=== PATIENT | female | born 1945 | race Caucasian/White ===

== ENCOUNTER 2016-10-05 23:27 | Inpatient (IN) | payer MEDICARE, OTHER ==
[~2016-10-05] VITALS: Ht 153.7 cm; Wt 78.5 kg
[~2016-10-05 23:27] MED LIST: ASPI-1035 PO; DIGO125T82 PO; DILT180C69 PO; ELIQUIS PO; FISH1CAP PO; FURO40TA5 PO; GABA-531 PO; LEVEMIR SQ; LEVO25TA54 PO; LOSA100T14 PO; METO200T34 PO; MULT-1116 PO; PROT40 PO
[2016-10-05] MEDS ORDERED: ASPIRIN 81MG TABLET PO STA (23:44)
[2016-10-06 00:05] LABS: BASOPHILS % 1.2 % (0.0-2.0); EOSINOPHILS % 2.2 % (0.0-5.0); HEMATOCRIT. 37.2 % (36.0-48.0); HEMOGLOBIN. 11.9 g/dL (12.0-16.0); LYMPHOCYTES % 24.6 % (20.0-50.0); MEAN CORPUSCULAR HEMOGLOBIN 27.2 pg (28.0-32.0); MEAN CORPUSCULAR VOLUME 84.7 fL (81.0-99.0); MEAN PLATELET VOLUME 10.6 fl (7.4-10.4); MONOCYTES % 8.3 % (2.0-8.0); NEUTROPHILS % 63.7 % (40.0-76.0); PLATELET 301 x1000/uL (130-400); RED BLOOD CELL COUNT 4.39 mill/uL (4.2-5.4); RED CELL DISTRIBUTION WIDTH 18.2 % (11.6-14.6)
[2016-10-06 00:15] LABS: PARTIAL THROMBOPLASTIN TIME 22.4 sec (24.0-34.0); PROTHROMBIN TIME 10.3 sec
[2016-10-06 00:22] LABS: CARBON DIOXIDE 26 mEq/L (21-32); CHLORIDE 106 mEq/L (98-107); TROPONIN I 0.02 ng/mL (0.00-0.04)
[2016-10-06 02:50] VITALS: BP 130/74
[2016-10-06 04:00] VITALS: BP 98/55
[2016-10-06] MEDS ORDERED: LEVVL SQ (04:09)
[2016-10-06] MEDS ORDERED: APIX5TAB PO (04:09)
[2016-10-06] MEDS ORDERED: INSU100C3 SQ (04:13)
[2016-10-06] MEDS ORDERED: ACETAMINOPHEN 325MG TABLET PO PRN (05:00)
[2016-10-06] MEDS ORDERED: DEXTROSE 50% WATER 50ML SYRINGE IV PRN (05:00)
[2016-10-06] MEDS: LEVOTHYROXINE SODIUM 25MCG TABLET PO SCH (06:30)
[2016-10-06] MEDS: BLOOD SUGAR DIAGNOSTIC STRIP TEST SCH ×4 (06:30→20:23)
[2016-10-06] MEDS: INSULIN LISPRO 100 UNITS/ML SUBCUT SCH ×4 (06:39→21:15)
[2016-10-06 08:00] VITALS: BP 98/59
[2016-10-06 08:22] LABS: TROPONIN I 0.12 ng/mL (0.00-0.04)
[2016-10-06 08:37] LABS: BASOPHILS % 0.8 % (0.0-2.0); EOSINOPHILS % 2.5 % (0.0-5.0); HEMATOCRIT. 36.3 % (36.0-48.0); HEMOGLOBIN. 11.6 g/dL (12.0-16.0); LYMPHOCYTES % 33.4 % (20.0-50.0); MEAN CORPUSCULAR HEMOGLOBIN 26.9 pg (28.0-32.0); MEAN CORPUSCULAR VOLUME 84.7 fL (81.0-99.0); MEAN PLATELET VOLUME 10.9 fl (7.4-10.4); MONOCYTES % 9.4 % (2.0-8.0); NEUTROPHILS % 53.9 % (40.0-76.0); PLATELET 287 x1000/uL (130-400); RED BLOOD CELL COUNT 4.29 mill/uL (4.2-5.4)
[2016-10-06] MEDS ORDERED: ENOXAPARIN 40MG/0.4ML SYR SUBCUT SCH (09:00)
[2016-10-06] MEDS: DILTIAZEM HCL 180MG CAPSULE CD 24HR PO SCH (09:00)
[2016-10-06] MEDS: FUROSEMIDE 40MG TABLET PO SCH ×2 (09:00→17:32)
[2016-10-06] MEDS: LOSARTAN POTASSIUM 100 MG TABLET PO SCH (09:00)
[2016-10-06] MEDS: METOPROLOL TARTRATE 100MG TABLET PO SCH ×2 (09:00→20:23)
[2016-10-06] MEDS: ASPIRIN 81MG EC TABLET PO SCH (09:10)
[2016-10-06] MEDS: PANTOPRAZOLE 40MG DR TABLET PO SCH (09:10)
[2016-10-06] MEDS: GABAPENTIN 300MG CAPSULE PO SCH ×2 (09:10→17:32)
[2016-10-06] MEDS: FISH OIL/OMEGA-3 FATTY ACIDS 1000MG CAPSULE PO SCH (09:10)
[2016-10-06] MEDS: MULTIVITAMINS,THER W-MINERALS TABLET PO SCH (09:10)
[2016-10-06] MEDS: APIXABAN 5 MG TABLET PO SCH ×2 (09:10→17:32)
[2016-10-06] MEDS: INSULIN DETEMIR UD 100 UNITS/ML SYR SUBCUT SCH ×2 (09:14→21:16)
[2016-10-06 12:00] VITALS: BP 113/67
[2016-10-06 16:00] VITALS: BP 142/98
[2016-10-06 18:36] LABS: BG BASE EXCESS -0.3 mmol/L (-2.0-2.0); BG CARBOXYHEMOGLOBIN 0.8 % (0.5-1.5); BG DEOXYHEMOGLOBIN 7.9 % (0.0-5.0); BG FRACTION INSPIRED OXYGEN 21; BG HCO3 ACT 25.8 mmol/L (22.0-26.0); BG METHEMOGLOBIN 0.3 % (0.0-1.5); BG PCO2 48.2 mmHg (35.0-45.0); BG PH 7.346 (7.350-7.450); BG PO2 68.6 mmHg (75.0-100.0); BG SAMPLE SITE LEFT RADIAL; BG TOTAL HEMOGLOBIN 12.5 g/dL (12.0-18.0); BG VENT MODE ROOM AIR
[2016-10-06] MEDS ORDERED: IPRATROPIUM BROMIDE (0.02%) 0.5MG/2.5ML NEB HHN PRN (19:00)
[2016-10-06] MEDS ORDERED: IPRATROPIUM/ALBUTEROL 0.5-3(2.5)MG/3ML NEB HHN PRN (19:45)
[2016-10-06 20:00] VITALS: BP 137/73
[2016-10-07] VITALS (9 sets, daily range): BP systolic 101–139; BP diastolic 53–104
[2016-10-07] MEDS: HYDROMORPHONE HCL/PF 2MG/ML CPJ IV PRN ×3 (00:43→12:41)
[2016-10-07] MEDS ORDERED: HYDROCODONE/ACETAMINOPHEN 5/325MG TABLET PO PRN (06:00)
[2016-10-07] MEDS: BLOOD SUGAR DIAGNOSTIC STRIP TEST SCH ×4 (06:19→21:00)
[2016-10-07] MEDS: LEVOTHYROXINE SODIUM 25MCG TABLET PO SCH (06:19)
[2016-10-07] MEDS: INSULIN LISPRO 100 UNITS/ML SUBCUT SCH ×4 (06:25→21:38)
[2016-10-07] MEDS: MULTIVITAMINS,THER W-MINERALS TABLET PO SCH (08:40)
[2016-10-07] MEDS: FISH OIL/OMEGA-3 FATTY ACIDS 1000MG CAPSULE PO SCH (08:41)
[2016-10-07] MEDS: DILTIAZEM HCL 180MG CAPSULE CD 24HR PO SCH (08:41)
[2016-10-07] MEDS: LOSARTAN POTASSIUM 100 MG TABLET PO SCH (08:41)
[2016-10-07] MEDS: APIXABAN 5 MG TABLET PO SCH (08:41)
[2016-10-07] MEDS: ASPIRIN 81MG EC TABLET PO SCH (08:42)
[2016-10-07] MEDS: METOPROLOL TARTRATE 100MG TABLET PO SCH ×2 (08:42→21:36)
[2016-10-07] MEDS: FUROSEMIDE 40MG TABLET PO SCH ×2 (08:42→17:38)
[2016-10-07] MEDS: GABAPENTIN 300MG CAPSULE PO SCH ×2 (08:42→17:38)
[2016-10-07] MEDS: PANTOPRAZOLE 40MG DR TABLET PO SCH (08:46)
[2016-10-07] MEDS: INSULIN DETEMIR UD 100 UNITS/ML SYR SUBCUT SCH ×2 (10:46→21:39)
[2016-10-07] MEDS: NITROGLYCERIN 0.4MG TABLET SL SL PRN ×2 (11:45→12:00)
[2016-10-07] MEDS: CLOPIDOGREL 75MG TABLET PO SCH (12:40)
[2016-10-07] MEDS ORDERED: ACETAMINOPHEN WITH CODEINE 300/30MG TABLET PO PRN (13:15)
[2016-10-07] MEDS: NITROGLYCERIN 2% 30 GM OINT. TOP SCH ×2 (15:06→21:39)
[2016-10-07] MEDS ORDERED: ENOXAPARIN 60MG/0.6ML SYR SUBCUT SCH (21:00)
[2016-10-08] VITALS (12 sets, daily range): BP systolic 100–131; BP diastolic 43–86
[2016-10-08] MEDS: LEVOTHYROXINE SODIUM 25MCG TABLET PO SCH (06:23)
[2016-10-08] MEDS: NITROGLYCERIN 2% 30 GM OINT. TOP SCH ×3 (06:23→21:14)
[2016-10-08] MEDS: BLOOD SUGAR DIAGNOSTIC STRIP TEST SCH ×4 (06:50→21:08)
[2016-10-08 07:17] LABS: BASOPHILS % 0.5 % (0.0-2.0); HEMATOCRIT. 39.9 % (36.0-48.0); HEMOGLOBIN. 12.6 g/dL (12.0-16.0); MEAN CORPUSCULAR HEMOGLOBIN 27.1 pg (28.0-32.0); MEAN CORPUSCULAR VOLUME 85.5 fL (81.0-99.0); MEAN PLATELET VOLUME 10.7 fl (7.4-10.4); MONOCYTES % 10.9 % (2.0-8.0); NEUTROPHILS % 62.6 % (40.0-76.0); PLATELET 321 x1000/uL (130-400); RED BLOOD CELL COUNT 4.67 mill/uL (4.2-5.4); RED CELL DISTRIBUTION WIDTH 17.9 % (11.6-14.6)
[2016-10-08] MEDS: INSULIN LISPRO 100 UNITS/ML SUBCUT SCH ×4 (07:20→20:34)
[2016-10-08 07:30] LABS: T4 FREE 1.13 ng/dL (0.76-1.46)
[2016-10-08 08:04] LABS: TROPONIN I 4.4 ng/mL (0.00-0.04)
[2016-10-08] MEDS: GABAPENTIN 300MG CAPSULE PO SCH ×2 (08:06→17:12)
[2016-10-08] MEDS: FISH OIL/OMEGA-3 FATTY ACIDS 1000MG CAPSULE PO SCH (08:06)
[2016-10-08] MEDS: LOSARTAN POTASSIUM 100 MG TABLET PO SCH (08:06)
[2016-10-08] MEDS: NITROGLYCERIN 0.4MG TABLET SL SL PRN ×2 (08:06→23:05)
[2016-10-08] MEDS: METOPROLOL TARTRATE 100MG TABLET PO SCH ×2 (08:06→20:34)
[2016-10-08] MEDS: ASPIRIN 81MG EC TABLET PO SCH (08:07)
[2016-10-08] MEDS: DILTIAZEM HCL 180MG CAPSULE CD 24HR PO SCH (08:07)
[2016-10-08] MEDS: FUROSEMIDE 40MG TABLET PO SCH (08:07)
[2016-10-08] MEDS: CLOPIDOGREL 75MG TABLET PO SCH (08:07)
[2016-10-08] MEDS: FAMOTIDINE 20MG TABLET PO SCH (08:07)
[2016-10-08] MEDS: MULTIVITAMINS,THER W-MINERALS TABLET PO SCH (08:08)
[2016-10-08] MEDS: DIGOXIN 125MCG TABLET PO SCH (08:08)
[2016-10-08] MEDS: INSULIN DETEMIR UD 100 UNITS/ML SYR SUBCUT SCH ×2 (11:13→21:15)
[2016-10-09] VITALS (12 sets, daily range): BP systolic 100–154; BP diastolic 52–88
[2016-10-09] MEDS: SODIUM CHLORIDE 0.9% 1,000 ML IV SCH ×2 (01:10→21:14)
[2016-10-09 05:35] LABS: BASOPHILS % 0.8 % (0.0-2.0); EOSINOPHILS % 2.9 % (0.0-5.0); HEMATOCRIT. 33.6 % (36.0-48.0); HEMOGLOBIN. 10.7 g/dL (12.0-16.0); LYMPHOCYTES % 31.2 % (20.0-50.0); MEAN CORPUSCULAR HEMOGLOBIN 26.9 pg (28.0-32.0); MEAN CORPUSCULAR VOLUME 84.2 fL (81.0-99.0); MEAN PLATELET VOLUME 10.6 fl (7.4-10.4); MONOCYTES % 9.5 % (2.0-8.0); NEUTROPHILS % 55.6 % (40.0-76.0); PLATELET 278 x1000/uL (130-400); RED BLOOD CELL COUNT 3.99 mill/uL (4.2-5.4); RED CELL DISTRIBUTION WIDTH 17.7 % (11.6-14.6)
[2016-10-09] MEDS: NITROGLYCERIN 2% 30 GM OINT. TOP SCH ×4 (06:47→23:28)
[2016-10-09] MEDS: LEVOTHYROXINE SODIUM 25MCG TABLET PO SCH (06:47)
[2016-10-09] MEDS: BLOOD SUGAR DIAGNOSTIC STRIP TEST SCH ×4 (06:47→21:14)
[2016-10-09] MEDS: INSULIN LISPRO 100 UNITS/ML SUBCUT SCH ×4 (07:20→21:16)
[2016-10-09] MEDS: DILTIAZEM HCL 180MG CAPSULE CD 24HR PO SCH ×2 (09:00→10:35)
[2016-10-09] MEDS: LOSARTAN POTASSIUM 100 MG TABLET PO SCH ×2 (09:00→10:34)
[2016-10-09] MEDS: METOPROLOL TARTRATE 100MG TABLET PO SCH ×2 (09:00→21:14)
[2016-10-09] MEDS: FAMOTIDINE 20MG TABLET PO SCH ×2 (09:00→10:34)
[2016-10-09] MEDS: GABAPENTIN 300MG CAPSULE PO SCH ×2 (09:00→17:35)
[2016-10-09] MEDS: MULTIVITAMINS,THER W-MINERALS TABLET PO SCH ×2 (09:00→10:35)
[2016-10-09] MEDS: FISH OIL/OMEGA-3 FATTY ACIDS 1000MG CAPSULE PO SCH ×2 (09:00→10:35)
[2016-10-09] MEDS: ASPIRIN 81MG EC TABLET PO SCH ×2 (09:00→10:37)
[2016-10-09] MEDS: CLOPIDOGREL 75MG TABLET PO SCH (10:36)
[2016-10-09] MEDS: NITROGLYCERIN 0.4MG TABLET SL SL PRN ×4 (10:43→22:15)
[2016-10-09] MEDS: MORPHINE SULFATE 2 MG/ML CPJ (NOT FOR IM USE) IV PRN ×3 (10:53→19:05)
[2016-10-09] MEDS: INSULIN DETEMIR UD 100 UNITS/ML SYR SUBCUT SCH ×2 (11:14→21:28)
[2016-10-09 12:27] LABS: CREATINE KINASE MB FRACTION 3.3 ng/mL (0.5-3.6)
[2016-10-09 13:02] LABS: TROPONIN I 1.7 ng/mL (0.00-0.04)
[2016-10-09 16:06] LABS: CREATINE KINASE MB FRACTION 3.1 ng/mL (0.5-3.6)
[2016-10-09 16:24] LABS: TROPONIN I 1.2 ng/mL (0.00-0.04)
[2016-10-09] MEDS ORDERED: NITROGLYCERIN 2% 30 GM OINT. TOP SCH (18:00)
[2016-10-10] VITALS (20 sets, daily range): BP systolic 113–159; BP diastolic 45–105
[2016-10-10] MEDS ORDERED: DEXT 5%/0.45% NACL 1,000 ML IV ONE
[2016-10-10 00:01] LABS: CREATINE KINASE MB FRACTION 2.3 ng/mL (0.5-3.6)
[2016-10-10] MEDS: HYDROMORPHONE HCL/PF 2MG/ML CPJ IV PRN (00:09)
[2016-10-10] MEDS: DEXT 5%/0.45% NACL 1000ML 1,000 ML IV SCH ×3 (00:32→17:35)
[2016-10-10 00:56] LABS: TROPONIN I 0.91 ng/mL (0.00-0.04)
[2016-10-10] MEDS: NITROGLYCERIN 2% 30 GM OINT. TOP SCH ×5 (06:00→23:56)
[2016-10-10 06:14] LABS: BASOPHILS % 0.7 % (0.0-2.0); EOSINOPHILS % 1.9 % (0.0-5.0); HEMATOCRIT. 33.8 % (36.0-48.0); HEMOGLOBIN. 10.7 g/dL (12.0-16.0); LYMPHOCYTES % 22.6 % (20.0-50.0); MEAN PLATELET VOLUME 10.8 fl (7.4-10.4); NEUTROPHILS % 66.8 % (40.0-76.0); PLATELET 274 x1000/uL (130-400); RED BLOOD CELL COUNT 3.98 mill/uL (4.2-5.4); RED CELL DISTRIBUTION WIDTH 17.7 % (11.6-14.6)
[2016-10-10] MEDS: LEVOTHYROXINE SODIUM 25MCG TABLET PO SCH (06:33)
[2016-10-10] MEDS: BLOOD SUGAR DIAGNOSTIC STRIP TEST SCH ×4 (06:33→21:20)
[2016-10-10] MEDS: INSULIN LISPRO 100 UNITS/ML SUBCUT SCH ×4 (07:20→21:13)
[2016-10-10 08:00] LABS: TROPONIN I 1.2 ng/mL (0.00-0.04)
[2016-10-10] MEDS ORDERED: MIDAZOLAM HCL 2 MG/2 ML VIAL ONE ×3 (08:26→09:45)
[2016-10-10] MEDS ORDERED: FENTANYL CITRATE/PF 50MCG/ML 2ML VIAL ONE ×2 (08:27→09:46)
[2016-10-10] MEDS ORDERED: LIDOCAINE HCL 1% 20ML VIAL (Pyxis) INJ ONE ×2 (08:27→09:02)
[2016-10-10] MEDS ORDERED: IOHEXOL-300 100 ML BOTTLE ONE (08:27)
[2016-10-10] MEDS ORDERED: DIPHENHYDRAMINE 50MG/ML VIAL ONE (08:32)
[2016-10-10] MEDS ORDERED: HYDROCORTISONE SOD SUCCINATE 250 MG/2 ML VIAL ONE (08:32)
[2016-10-10] MEDS ORDERED: FAMOTIDINE 20MG/2ML VIAL IV ONE (08:33)
[2016-10-10] MEDS: ASPIRIN 81MG EC TABLET PO SCH (09:00)
[2016-10-10] MEDS: CLOPIDOGREL 75MG TABLET PO SCH (09:00)
[2016-10-10] MEDS: FISH OIL/OMEGA-3 FATTY ACIDS 1000MG CAPSULE PO SCH (09:00)
[2016-10-10] MEDS: MULTIVITAMINS,THER W-MINERALS TABLET PO SCH (09:00)
[2016-10-10] MEDS ORDERED: IOVERSOL 240MG/ML 100ML BOTTLE IV ONE (09:14)
[2016-10-10] MEDS ORDERED: IODIXANOL 320MG/ML 100 ML BOTTLE IV ONE (09:33)
[2016-10-10] MEDS ORDERED: ATROPINE SULFATE 0.1MG/ML 10ML DISP.SYRIN ONE (09:40)
[2016-10-10] MEDS: INSULIN DETEMIR UD 100 UNITS/ML SYR SUBCUT SCH ×2 (10:00→21:19)
[2016-10-10] MEDS ORDERED: CLOPIDOGREL 75MG TABLET ONE (10:06)
[2016-10-10] MEDS ORDERED: ASPIRIN 325MG TABLET ONE (10:06)
[2016-10-10] MEDS ORDERED: ATROPINE SULFATE 1MG/10ML SYR IV PRN (10:30)
[2016-10-10] MEDS: POTASSIUM CHLORIDE 20MEQ TABLET SR PO SCH ×2 (10:30→13:35)
[2016-10-10] MEDS ORDERED: FUROSEMIDE 40MG/4ML VIAL ONE (10:45)
[2016-10-10] MEDS: DILTIAZEM HCL 180MG CAPSULE CD 24HR PO SCH (13:35)
[2016-10-10] MEDS: FAMOTIDINE 20MG TABLET PO SCH (13:35)
[2016-10-10] MEDS: GABAPENTIN 300MG CAPSULE PO SCH ×2 (13:36→17:34)
[2016-10-10] MEDS: LOSARTAN POTASSIUM 100 MG TABLET PO SCH (13:36)
[2016-10-10] MEDS: DIGOXIN 125MCG TABLET PO SCH (13:36)
[2016-10-10] MEDS ORDERED: HEPARIN SODIUM 1,000 UNIT/1ML VIAL IV ONE (15:26)
[2016-10-10] MEDS: CARVEDILOL 12.5MG TABLET PO SCH (21:20)
[2016-10-11] VITALS (12 sets, daily range): BP systolic 83–145; BP diastolic 49–71
[2016-10-11] MEDS: NITROGLYCERIN 2% 30 GM OINT. TOP SCH ×3 (05:18→17:05)
[2016-10-11] MEDS: BLOOD SUGAR DIAGNOSTIC STRIP TEST SCH ×3 (05:19→17:05)
[2016-10-11] MEDS: LEVOTHYROXINE SODIUM 25MCG TABLET PO SCH (05:27)
[2016-10-11 06:54] LABS: BASOPHILS % 0.5 % (0.0-2.0); EOSINOPHILS % 1.1 % (0.0-5.0); HEMATOCRIT. 32.6 % (36.0-48.0); HEMOGLOBIN. 10.5 g/dL (12.0-16.0); LYMPHOCYTES % 23.9 % (20.0-50.0); MEAN CORPUSCULAR HEMOGLOBIN 27.2 pg (28.0-32.0); MEAN CORPUSCULAR VOLUME 84.4 fL (81.0-99.0); MEAN PLATELET VOLUME 10.8 fl (7.4-10.4); MONOCYTES % 10.3 % (2.0-8.0); NEUTROPHILS % 64.2 % (40.0-76.0); PLATELET 262 x1000/uL (130-400); RED BLOOD CELL COUNT 3.86 mill/uL (4.2-5.4); RED CELL DISTRIBUTION WIDTH 17.7 % (11.6-14.6)
[2016-10-11] MEDS: NITROGLYCERIN 0.4MG TABLET SL SL PRN (07:15)
[2016-10-11] MEDS: INSULIN LISPRO 100 UNITS/ML SUBCUT SCH ×3 (07:46→17:26)
[2016-10-11] MEDS: APIXABAN 2.5 MG TABLET PO SCH ×2 (08:38→16:33)
[2016-10-11] MEDS: POTASSIUM CHLORIDE 20MEQ TABLET SR PO SCH (08:38)
[2016-10-11] MEDS: CLOPIDOGREL 75MG TABLET PO SCH (08:38)
[2016-10-11] MEDS: MULTIVITAMINS,THER W-MINERALS TABLET PO SCH (08:38)
[2016-10-11] MEDS: FISH OIL/OMEGA-3 FATTY ACIDS 1000MG CAPSULE PO SCH (08:38)
[2016-10-11] MEDS: ASPIRIN 81MG EC TABLET PO SCH (08:38)
[2016-10-11] MEDS: FAMOTIDINE 20MG TABLET PO SCH (08:38)
[2016-10-11] MEDS: GABAPENTIN 300MG CAPSULE PO SCH ×2 (08:39→16:33)
[2016-10-11] MEDS: CARVEDILOL 12.5MG TABLET PO SCH (08:42)
[2016-10-11] MEDS: LOSARTAN POTASSIUM 100 MG TABLET PO SCH (08:43)
[2016-10-11] MEDS: DILTIAZEM HCL 180MG CAPSULE CD 24HR PO SCH (08:44)
[2016-10-11] MEDS: MORPHINE SULFATE 2 MG/ML CPJ (NOT FOR IM USE) IV PRN (09:26)
[2016-10-11] MEDS: INSULIN DETEMIR UD 100 UNITS/ML SYR SUBCUT SCH (09:40)
[2016-10-11] MEDS: DEXT 5%/0.45% NACL 1000ML 1,000 ML IV SCH (14:00)
== END 2016-10-11 18:42 | disposition home health service (06) | DRG 246 ==
LOC: ER 23:40 → 8WST 10-06 01:02 → 3WST 10-07 13:47
PROVIDERS: ADMIT Internal Medicine; ATTEND Internal Medicine
PROC: 5A09457 Assistance with Respiratory Ventilation, 24-96 Consecutive Hours, Continuous Positive Airway Pressure (ICD-10-PCS; 2016-10-07)
PROC: 027034Z Dilation of Coronary Artery, One Artery with Drug-eluting Intraluminal Device, Percutaneous Approach (ICD-10-PCS; principal; 2016-10-10)
PROC: 4A023N7 Measurement of Cardiac Sampling and Pressure, Left Heart, Percutaneous Approach (ICD-10-PCS; 2016-10-10)
PROC: B2111ZZ Fluoroscopy of Multiple Coronary Arteries using Low Osmolar Contrast (ICD-10-PCS; 2016-10-10)
PROC: B2131ZZ Fluoroscopy of Multiple Coronary Artery Bypass Grafts using Low Osmolar Contrast (ICD-10-PCS; 2016-10-10)
DX: T82.898A Other specified complication of vascular prosthetic devices, implants and grafts, initial encounter (principal); I21.4 Non-ST elevation (NSTEMI) myocardial infarction; I42.9 Cardiomyopathy, unspecified; I13.0 Hypertensive heart and chronic kidney disease with heart failure and stage 1 through stage 4 chronic kidney disease, or unspecified chronic kidney disease; N17.9 Acute kidney failure, unspecified; I50.9 Heart failure, unspecified; N18.3 Chronic kidney disease, stage 3 (moderate); I49.5 Sick sinus syndrome; E03.9 Hypothyroidism, unspecified; E11.22 Type 2 diabetes mellitus with diabetic chronic kidney disease; E11.42 Type 2 diabetes mellitus with diabetic polyneuropathy; E78.5 Hyperlipidemia, unspecified; E66.01 Morbid (severe) obesity due to excess calories; Y83.2 Surgical operation with anastomosis, bypass or graft as the cause of abnormal reaction of the patient, or of later complication, without mention of misadventure at the time of the procedure; I48.2 Chronic atrial fibrillation; K21.9 Gastro-esophageal reflux disease without esophagitis; G47.33 Obstructive sleep apnea (adult) (pediatric); I25.10 Atherosclerotic heart disease of native coronary artery without angina pectoris; I25.2 Old myocardial infarction; Z82.49 Family history of ischemic heart disease and other diseases of the circulatory system; Z87.891 Personal history of nicotine dependence; Z95.0 Presence of cardiac pacemaker; Z95.1 Presence of aortocoronary bypass graft; Z88.6 Allergy status to analgesic agent; Z88.1 Allergy status to other antibiotic agents; Z91.041 Radiographic dye allergy status; Z88.2 Allergy status to sulfonamides; Z88.8 Allergy status to other drugs, medicaments and biological substances; Z91.018 Allergy to other foods; Z91.048 Other nonmedicinal substance allergy status; Z79.82 Long term (current) use of aspirin; Z79.899 Other long term (current) drug therapy; Z68.33 Body mass index [BMI] 33.0-33.9, adult
CPT/HCPCS: 36415; 36600; 71010; 80048; 80053; 82375; 82550; 82553; 82805; 82962; 83690; 83880; 84439; 84443; 84481; 84484; 85025; 85347; 85610; 85730; 92928; 93005; 93459; 94660; 97162; 99285; C1760; C1769; C1887; C1893; J0461; J1170; J1200; J1644; J1720; J1815; J1940; J2250; J2270; J3010; J3490; J7030; J7042; J7070; J7620; L1830; Q9967

== ENCOUNTER 2017-01-06 08:19 | Inpatient (IN) | payer MEDICARE, OTHER ==
[~2017-01-06] VITALS: Ht 153.7 cm; Wt 76.2 kg
[~2017-01-06 08:19] MED LIST changes: -ASPI-1035 PO; -ELIQUIS PO; +INSU100C3 SQ; -LEVEMIR SQ; +LEVO25TA2 PO; -LEVO25TA54 PO; +LEVVL SQ; -METO200T34 PO; +METO200T5 PO
[2017-01-06] MEDS ORDERED: PANTOPRAZOLE SODIUM 40 MG/VIAL IV STA (09:15)
[2017-01-06] MEDS ORDERED: PANTOPRAZOLE 80 MG in SODIUM CHLORIDE 0.9% 100 ML IV STA (09:15)
[2017-01-06] MEDS ORDERED: PANTOPRAZOLE SODIUM 40 MG/VIAL IV ONE ×2 (09:31→16:00)
[2017-01-06 09:59] LABS: EOSINOPHILS % 1.7 % (0.0-5.0); HEMATOCRIT. 40.6 % (36.0-48.0); LYMPHOCYTES % 29.1 % (20.0-50.0); MEAN CORPUSCULAR HEMOGLOBIN 27.6 pg (28.0-32.0); MEAN PLATELET VOLUME 10.1 fl (7.4-10.4); MONOCYTES % 10.1 % (2.0-8.0); NEUTROPHILS % 58.1 % (40.0-76.0); PLATELET 252 x1000/uL (130-400); RED BLOOD CELL COUNT 4.72 mill/uL (4.2-5.4); RED CELL DISTRIBUTION WIDTH 19.2 % (11.6-14.6)
[2017-01-06 10:06] LABS: INR 1.1; PARTIAL THROMBOPLASTIN TIME 27.1 sec (23.4-31.0)
[2017-01-06 10:17] LABS: CARBON DIOXIDE 30 mEq/L (21-32); CHLORIDE 100 mEq/L (98-107); TROPONIN I < 0.02 ng/mL (0.00-0.04)
[2017-01-06 10:26] LABS: DIGOXIN 0.4 ng/mL (0.9-2.0)
[2017-01-06] MEDS ORDERED: SODIUM CHLORIDE 0.9% 500 ML IV ONE (11:00)
[2017-01-06 15:01] VITALS: BP 130/70
[2017-01-06 15:47] VITALS: BP 130/73
[2017-01-06] MEDS ORDERED: ONDANSETRON HCL 4MG/2ML VIAL IV PRN (16:00)
[2017-01-06] MEDS ORDERED: LORAZEPAM 2MG/ML CPJ IV PRN (16:00)
[2017-01-06] MEDS ORDERED: CLONIDINE 0.1MG TABLET PO PRN (16:00)
[2017-01-06] MEDS ORDERED: IPRATROPIUM/ALBUTEROL 0.5-3(2.5)MG/3ML NEB INH PRN (16:00)
[2017-01-06] MEDS ORDERED: MORPHINE SULFATE 2 MG/ML CPJ (NOT FOR IM USE) IV PRN (16:15)
[2017-01-06] MEDS ORDERED: DEXT 5%/0.45% NACL 1000ML 1,000 ML IV SCH (16:20)
[2017-01-06] MEDS ORDERED: DEXTROSE 50% WATER 50ML SYRINGE IV PRN (16:45)
[2017-01-06] MEDS ORDERED: CLOP75TA33 PO (16:51)
[2017-01-06] MEDS ORDERED: CARV6.2548 PO (16:51)
[2017-01-06] MEDS ORDERED: ASPI-986 PO (16:53)
[2017-01-06] MEDS ORDERED: ELIQ (16:53)
[2017-01-06] MEDS: INSULIN LISPRO 100 UNITS/ML SUBCUT SCH ×2 (17:40→21:38)
[2017-01-06] MEDS: BLOOD SUGAR DIAGNOSTIC STRIP TEST SCH ×2 (17:46→21:00)
[2017-01-06 20:00] VITALS: BP 131/65
[2017-01-06 22:34] LABS: GLUCOSE URINE NEGATIVE (NEGATIVE); KETONES URINE NEGATIVE (NEGATIVE); LEUKOCYTE ESTERASE URINE NEGATIVE (NEGATIVE); NITRITE URINE NEGATIVE (NEGATIVE); OCCULT BLOOD URINE NEGATIVE (NEGATIVE); PROTEIN URINE TRACE (NEGATIVE); SPECIFIC GRAVITY URINE 1.017 (1.005-1.030); UROBILINOGEN URINE 0.2 E.U./dL (0.2-1.0)
[2017-01-06 22:35] LABS: CLARITY URINE CLEAR (CLEAR); COLOR URINE YELLOW (YELLOW)
[2017-01-06 22:49] LABS: *AMPHETAMINES SCREEN URINE NEGATIVE (NEGATIVE); *BARBITURATES SCREEN URINE NEGATIVE (NEGATIVE); *BENZODIAZEPINES SCREEN URINE NEGATIVE (NEGATIVE); *COCAINE SCREEN URINE NEGATIVE (NEGATIVE); CANNABINOID URINE SCREEN NEGATIVE (NEGATIVE); METHADONE URINE SCREEN NEGATIVE (NEGATIVE); OPIATES URINE SCREEN NEGATIVE (NEGATIVE); PHENCYCLIDINE URINE SCREEN NEGATIVE (NEGATIVE)
[2017-01-06 23:12] LABS: CREATINE KINASE MB FRACTION 1.5 ng/mL (0.5-3.6); TROPONIN I < 0.02 ng/mL (0.00-0.04)
[2017-01-07] VITALS: BP 135/66
[2017-01-07 04:00] VITALS: BP 126/65
[2017-01-07] MEDS: BLOOD SUGAR DIAGNOSTIC STRIP TEST SCH ×4 (05:55→20:17)
[2017-01-07] MEDS: LEVOTHYROXINE SODIUM 25MCG TABLET PO SCH (06:09)
[2017-01-07] MEDS: INSULIN LISPRO 100 UNITS/ML SUBCUT SCH ×4 (06:11→21:05)
[2017-01-07 06:55] LABS: BASOPHILS % 0.6 % (0.0-2.0); EOSINOPHILS % 2.9 % (0.0-5.0); HEMATOCRIT. 39.7 % (36.0-48.0); HEMOGLOBIN. 12.8 g/dL (12.0-16.0); MEAN CORPUSCULAR HEMOGLOBIN 27.7 pg (28.0-32.0); MEAN CORPUSCULAR VOLUME 86.2 fL (81.0-99.0); MEAN PLATELET VOLUME 10.2 fl (7.4-10.4); MONOCYTES % 9.6 % (2.0-8.0); NEUTROPHILS % 57.9 % (40.0-76.0); PLATELET 264 x1000/uL (130-400); RED BLOOD CELL COUNT 4.61 mill/uL (4.2-5.4); RED CELL DISTRIBUTION WIDTH 18.5 % (11.6-14.6)
[2017-01-07 07:29] LABS: CREATINE KINASE MB FRACTION 1.3 ng/mL (0.5-3.6); T4 FREE 1.07 ng/dL (0.76-1.46); TROPONIN I 0.04 ng/mL (0.00-0.04)
[2017-01-07 08:00] VITALS: BP 131/69
[2017-01-07] MEDS: PANTOPRAZOLE SODIUM 40 MG/VIAL IV SCH (08:59)
[2017-01-07] MEDS: DOCUSATE SODIUM 100MG CAPSULE PO SCH ×2 (11:00→16:30)
[2017-01-07 12:00] VITALS: BP 117/81
[2017-01-07] MEDS: SUCRALFATE 1G TABLET PO SCH ×3 (12:41→21:00)
[2017-01-07 14:58] LABS: TOTAL IRON BINDING CAPACITY 325 ug/dL (250-450)
[2017-01-07 16:00] VITALS: BP 166/95
[2017-01-07 20:00] VITALS: BP 177/84
[2017-01-07] MEDS: SENNOSIDES/DOCUSATE SOD 8.6/50MG TABLET PO SCH (21:00)
[2017-01-07] MEDS ORDERED: ZOLPIDEM TARTRATE 5MG TABLET PO PRN (21:00)
[2017-01-07] MEDS: GABAPENTIN 300MG CAPSULE PO SCH (21:01)
[2017-01-07] MEDS: CARVEDILOL 6.25 MG TABLET PO SCH (21:02)
[2017-01-07] MEDS: DILTIAZEM HCL 180MG CAPSULE CD 24HR PO SCH (21:02)
[2017-01-07] MEDS: LOSARTAN POTASSIUM 100 MG TABLET PO SCH (21:04)
[2017-01-08] VITALS: BP 142/68
[2017-01-08] MEDS: MORPHINE SULFATE 2 MG/ML CPJ (NOT FOR IM USE) IV PRN ×4 (01:28→21:56)
[2017-01-08 04:00] VITALS: BP 150/61
[2017-01-08] MEDS: ACETAMINOPHEN 325MG TABLET PO PRN (04:38)
[2017-01-08] MEDS: BLOOD SUGAR DIAGNOSTIC STRIP TEST SCH ×4 (05:57→21:07)
[2017-01-08] MEDS: LEVOTHYROXINE SODIUM 25MCG TABLET PO SCH (06:37)
[2017-01-08] MEDS: SUCRALFATE 1G TABLET PO SCH ×4 (06:37→21:27)
[2017-01-08] MEDS: INSULIN LISPRO 100 UNITS/ML SUBCUT SCH ×4 (06:37→21:29)
[2017-01-08 07:20] LABS: BASOPHILS % 0.9 % (0.0-2.0); EOSINOPHILS % 2.4 % (0.0-5.0); HEMOGLOBIN. 12.2 g/dL (12.0-16.0); LYMPHOCYTES % 30.9 % (20.0-50.0); MEAN CORPUSCULAR HEMOGLOBIN 27.6 pg (28.0-32.0); MEAN CORPUSCULAR VOLUME 86.2 fL (81.0-99.0); MEAN PLATELET VOLUME 10.3 fl (7.4-10.4); MONOCYTES % 9.5 % (2.0-8.0); NEUTROPHILS % 56.3 % (40.0-76.0); PLATELET 254 x1000/uL (130-400); RED BLOOD CELL COUNT 4.41 mill/uL (4.2-5.4); RED CELL DISTRIBUTION WIDTH 18.7 % (11.6-14.6)
[2017-01-08 08:00] VITALS: BP 124/79
[2017-01-08] MEDS: DILTIAZEM HCL 180MG CAPSULE CD 24HR PO SCH (08:54)
[2017-01-08] MEDS: LOSARTAN POTASSIUM 100 MG TABLET PO SCH (08:54)
[2017-01-08] MEDS: CARVEDILOL 6.25 MG TABLET PO SCH ×2 (08:54→21:28)
[2017-01-08] MEDS: FISH OIL/OMEGA-3 FATTY ACIDS 1000MG CAPSULE PO SCH (08:54)
[2017-01-08] MEDS: PANTOPRAZOLE SODIUM 40 MG/VIAL IV SCH (08:55)
[2017-01-08] MEDS: DOCUSATE SODIUM 100MG CAPSULE PO SCH ×2 (08:55→17:16)
[2017-01-08] MEDS: GABAPENTIN 300MG CAPSULE PO SCH ×2 (08:55→17:16)
[2017-01-08] MEDS: FUROSEMIDE 40MG TABLET PO SCH ×2 (08:55→17:16)
[2017-01-08] MEDS ORDERED: [UNRECOGNIZED DRUG - OTHER] PO SCH (09:00)
[2017-01-08] MEDS ORDERED: FISH OIL PO SCH (09:00)
[2017-01-08] MEDS ORDERED: OMEGA PO SCH (09:00)
[2017-01-08 12:00] VITALS: BP 115/62
[2017-01-08] MEDS ORDERED: CLOPIDOGREL 75MG TABLET PO NR (12:45)
[2017-01-08] MEDS: ASPIRIN 81MG EC TABLET PO SCH (15:17)
[2017-01-08 16:00] VITALS: BP 119/74
[2017-01-08] MEDS: FERROUS SULFATE 325MG TABLET PO SCH (17:16)
[2017-01-08 20:00] VITALS: BP_SYST 137; BP_SYST 151; BP_DIAS 77; BP_DIAS 78
[2017-01-08] MEDS: SENNOSIDES/DOCUSATE SOD 8.6/50MG TABLET PO SCH (21:27)
[2017-01-08] MEDS ORDERED: INSULIN DETEMIR UD 100 UNITS/ML SYR SUBCUT NR (21:45)
[2017-01-08] MEDS ORDERED: INSULIN DETEMIR UD 100 UNITS/ML SYR SUBCUT SCH (22:00)
[2017-01-09] VITALS: BP 119/57
[2017-01-09 04:00] VITALS: BP 140/80
[2017-01-09] MEDS: MORPHINE SULFATE 2 MG/ML CPJ (NOT FOR IM USE) IV PRN ×2 (04:16→10:15)
[2017-01-09] MEDS: BLOOD SUGAR DIAGNOSTIC STRIP TEST SCH ×4 (06:44→21:10)
[2017-01-09] MEDS: LEVOTHYROXINE SODIUM 25MCG TABLET PO SCH (06:53)
[2017-01-09] MEDS: INSULIN LISPRO 100 UNITS/ML SUBCUT SCH ×4 (06:53→21:53)
[2017-01-09] MEDS: SUCRALFATE 1G TABLET PO SCH ×4 (06:53→20:58)
[2017-01-09 08:00] VITALS: BP 164/80
[2017-01-09 08:01] LABS: BASOPHILS % 0.9 % (0.0-2.0); EOSINOPHILS % 2.6 % (0.0-5.0); HEMATOCRIT. 39.7 % (36.0-48.0); HEMOGLOBIN. 12.6 g/dL (12.0-16.0); LYMPHOCYTES % 24.4 % (20.0-50.0); MEAN CORPUSCULAR HEMOGLOBIN 27.3 pg (28.0-32.0); MEAN PLATELET VOLUME 10.4 fl (7.4-10.4); MONOCYTES % 9.2 % (2.0-8.0); NEUTROPHILS % 62.9 % (40.0-76.0); PLATELET 271 x1000/uL (130-400); RED BLOOD CELL COUNT 4.62 mill/uL (4.2-5.4); RED CELL DISTRIBUTION WIDTH 18.7 % (11.6-14.6)
[2017-01-09] MEDS: GABAPENTIN 300MG CAPSULE PO SCH ×2 (09:00→17:29)
[2017-01-09] MEDS: FUROSEMIDE 40MG TABLET PO SCH ×2 (09:00→17:29)
[2017-01-09] MEDS: ASPIRIN 81MG EC TABLET PO SCH (09:00)
[2017-01-09] MEDS: DOCUSATE SODIUM 100MG CAPSULE PO SCH ×2 (09:00→17:29)
[2017-01-09] MEDS: FERROUS SULFATE 325MG TABLET PO SCH ×3 (09:00→17:29)
[2017-01-09] MEDS: FISH OIL/OMEGA-3 FATTY ACIDS 1000MG CAPSULE PO SCH (09:01)
[2017-01-09] MEDS: FAMOTIDINE 20MG TABLET PO SCH (09:01)
[2017-01-09] MEDS: DILTIAZEM HCL 180MG CAPSULE CD 24HR PO SCH (09:01)
[2017-01-09] MEDS: LOSARTAN POTASSIUM 100 MG TABLET PO SCH (09:01)
[2017-01-09] MEDS: CARVEDILOL 6.25 MG TABLET PO SCH ×2 (09:02→20:57)
[2017-01-09] MEDS: INSULIN DETEMIR UD 100 UNITS/ML SYR SUBCUT SCH ×2 (09:19→22:47)
[2017-01-09] MEDS: CLOPIDOGREL 75MG TABLET PO SCH (09:20)
[2017-01-09 11:57] VITALS: BP_SYST 159; BP_SYST 161; BP_DIAS 75; BP_DIAS 86
[2017-01-09] MEDS ORDERED: LIDOCAINE 5% PATCH TOP SCH (15:00)
[2017-01-09 15:49] VITALS: BP 131/63
[2017-01-09] MEDS ORDERED: DIGOXIN 125MCG TABLET PO SCH (18:00)
[2017-01-09 20:00] VITALS: BP 167/77
[2017-01-09] MEDS: SENNOSIDES/DOCUSATE SOD 8.6/50MG TABLET PO SCH (20:57)
[2017-01-09] MEDS: ACETAMINOPHEN 325MG TABLET PO PRN (20:58)
[2017-01-10] VITALS: BP 156/74
[2017-01-10 04:00] VITALS: BP 145/73
[2017-01-10 06:07] LABS: EOSINOPHILS % 2.3 % (0.0-5.0); HEMATOCRIT. 40.6 % (36.0-48.0); HEMOGLOBIN. 13.1 g/dL (12.0-16.0); LYMPHOCYTES % 30.7 % (20.0-50.0); MEAN CORPUSCULAR HEMOGLOBIN 27.6 pg (28.0-32.0); MEAN CORPUSCULAR VOLUME 85.4 fL (81.0-99.0); MONOCYTES % 10.1 % (2.0-8.0); NEUTROPHILS % 55.9 % (40.0-76.0); PLATELET 283 x1000/uL (130-400); RED BLOOD CELL COUNT 4.75 mill/uL (4.2-5.4); RED CELL DISTRIBUTION WIDTH 18.6 % (11.6-14.6)
[2017-01-10] MEDS: ACETAMINOPHEN 325MG TABLET PO PRN (06:46)
[2017-01-10] MEDS: SUCRALFATE 1G TABLET PO SCH ×4 (06:46→20:29)
[2017-01-10] MEDS: LEVOTHYROXINE SODIUM 25MCG TABLET PO SCH (06:46)
[2017-01-10] MEDS: BLOOD SUGAR DIAGNOSTIC STRIP TEST SCH ×4 (06:47→20:28)
[2017-01-10] MEDS: INSULIN LISPRO 100 UNITS/ML SUBCUT SCH ×4 (06:48→20:33)
[2017-01-10 07:47] VITALS: BP 133/62
[2017-01-10] MEDS: INSULIN DETEMIR UD 100 UNITS/ML SYR SUBCUT SCH ×2 (09:09→22:42)
[2017-01-10] MEDS: DILTIAZEM HCL 180MG CAPSULE CD 24HR PO SCH (09:10)
[2017-01-10] MEDS: CARVEDILOL 6.25 MG TABLET PO SCH ×2 (09:10→20:30)
[2017-01-10] MEDS: FERROUS SULFATE 325MG TABLET PO SCH ×3 (09:10→18:15)
[2017-01-10] MEDS: DOCUSATE SODIUM 100MG CAPSULE PO SCH ×2 (09:10→18:15)
[2017-01-10] MEDS: FAMOTIDINE 20MG TABLET PO SCH (09:11)
[2017-01-10] MEDS: CLOPIDOGREL 75MG TABLET PO SCH (09:11)
[2017-01-10] MEDS: ASPIRIN 81MG EC TABLET PO SCH (09:11)
[2017-01-10] MEDS: FISH OIL/OMEGA-3 FATTY ACIDS 1000MG CAPSULE PO SCH (09:11)
[2017-01-10] MEDS: FUROSEMIDE 40MG TABLET PO SCH (09:11)
[2017-01-10] MEDS: GABAPENTIN 300MG CAPSULE PO SCH ×2 (09:11→18:15)
[2017-01-10] MEDS: LOSARTAN POTASSIUM 100 MG TABLET PO SCH (09:11)
[2017-01-10] MEDS: LIDOCAINE 5% PATCH TOP SCH (09:13)
[2017-01-10 12:00] VITALS: BP 123/69
[2017-01-10] MEDS ORDERED: SODIUM CHLORIDE 0.45% 1,000 ML IV SCH (14:00)
[2017-01-10 16:00] VITALS: BP_SYST 131; BP_SYST 132; BP_SYST 137; BP_DIAS 66; BP_DIAS 71; BP_DIAS 72
[2017-01-10 20:00] VITALS: BP 117/52
[2017-01-10] MEDS: SENNOSIDES/DOCUSATE SOD 8.6/50MG TABLET PO SCH (20:29)
[2017-01-11] VITALS: BP_SYST 130; BP_SYST 133; BP_SYST 134; BP_DIAS 54; BP_DIAS 57; BP_DIAS 59
[2017-01-11 04:00] VITALS: BP 156/69
[2017-01-11 04:15] LABS: OVA & PARASITE EXAM Final report (.)
[2017-01-11] MEDS: BLOOD SUGAR DIAGNOSTIC STRIP TEST SCH (06:00)
[2017-01-11] MEDS: SUCRALFATE 1G TABLET PO SCH (06:12)
[2017-01-11] MEDS: LEVOTHYROXINE SODIUM 25MCG TABLET PO SCH (06:12)
[2017-01-11] MEDS: INSULIN LISPRO 100 UNITS/ML SUBCUT SCH (06:14)
[2017-01-11 06:31] LABS: BASOPHILS % 0.8 % (0.0-2.0); EOSINOPHILS % 2.4 % (0.0-5.0); HEMOGLOBIN. 12.6 g/dL (12.0-16.0); LYMPHOCYTES % 32.1 % (20.0-50.0); MEAN CORPUSCULAR HEMOGLOBIN 27.6 pg (28.0-32.0); MEAN CORPUSCULAR VOLUME 85.4 fL (81.0-99.0); MEAN PLATELET VOLUME 10.2 fl (7.4-10.4); MONOCYTES % 9.5 % (2.0-8.0); NEUTROPHILS % 55.2 % (40.0-76.0); PLATELET 271 x1000/uL (130-400); RED BLOOD CELL COUNT 4.57 mill/uL (4.2-5.4); RED CELL DISTRIBUTION WIDTH 18.7 % (11.6-14.6)
[2017-01-11 08:00] VITALS: BP 149/62
[2017-01-11] MEDS: INSULIN DETEMIR UD 100 UNITS/ML SYR SUBCUT SCH (09:02)
[2017-01-11] MEDS: FERROUS SULFATE 325MG TABLET PO SCH (09:02)
[2017-01-11] MEDS: FISH OIL/OMEGA-3 FATTY ACIDS 1000MG CAPSULE PO SCH (09:03)
[2017-01-11] MEDS: CLOPIDOGREL 75MG TABLET PO SCH (09:03)
[2017-01-11] MEDS: ASPIRIN 81MG EC TABLET PO SCH (09:03)
[2017-01-11] MEDS: GABAPENTIN 300MG CAPSULE PO SCH (09:03)
[2017-01-11] MEDS: LOSARTAN POTASSIUM 100 MG TABLET PO SCH (09:04)
[2017-01-11] MEDS: DILTIAZEM HCL 180MG CAPSULE CD 24HR PO SCH (09:05)
[2017-01-11] MEDS: FAMOTIDINE 20MG TABLET PO SCH (09:06)
[2017-01-11] MEDS: CARVEDILOL 6.25 MG TABLET PO SCH (09:06)
[2017-01-11] MEDS: DOCUSATE SODIUM 100MG CAPSULE PO SCH (09:06)
[2017-01-11] MEDS: LIDOCAINE 5% PATCH TOP SCH (09:11)
[2017-01-11 11:13] VITALS: BP 120/82
[2017-01-11 11:42] VITALS: BP 120/82
== END 2017-01-11 14:10 | disposition home health service (06) | DRG 378 ==
LOC: ER 08:19 → 8WST 13:17 → EDBEDREQ 13:19 → ENRESERV 14:15
PROVIDERS: ADMIT Internal Medicine Nephrology; ATTEND Internal Medicine Nephrology
DX: K92.2 Gastrointestinal hemorrhage, unspecified (principal); N17.9 Acute kidney failure, unspecified; E44.0 Moderate protein-calorie malnutrition; I42.9 Cardiomyopathy, unspecified; E11.42 Type 2 diabetes mellitus with diabetic polyneuropathy; I48.0 Paroxysmal atrial fibrillation; I11.0 Hypertensive heart disease with heart failure; I50.9 Heart failure, unspecified; J44.9 Chronic obstructive pulmonary disease, unspecified; E03.9 Hypothyroidism, unspecified; D64.9 Anemia, unspecified; E78.5 Hyperlipidemia, unspecified; I25.10 Atherosclerotic heart disease of native coronary artery without angina pectoris; K21.9 Gastro-esophageal reflux disease without esophagitis; E86.0 Dehydration; F17.200 Nicotine dependence, unspecified, uncomplicated; I95.1 Orthostatic hypotension; M10.9 Gout, unspecified; M17.12 Unilateral primary osteoarthritis, left knee; M70.52 Other bursitis of knee, left knee; I25.2 Old myocardial infarction; Z79.01 Long term (current) use of anticoagulants; Z95.1 Presence of aortocoronary bypass graft; Z79.02 Long term (current) use of antithrombotics/antiplatelets; Z79.4 Long term (current) use of insulin; Z79.82 Long term (current) use of aspirin; Z87.11 Personal history of peptic ulcer disease; Z90.49 Acquired absence of other specified parts of digestive tract; Z95.5 Presence of coronary angioplasty implant and graft; Z95.810 Presence of automatic (implantable) cardiac defibrillator; Z98.84 Bariatric surgery status; Z68.32 Body mass index [BMI] 32.0-32.9, adult; Z88.2 Allergy status to sulfonamides; Z88.8 Allergy status to other drugs, medicaments and biological substances
CPT/HCPCS: 36415; 71010; 73562; 80048; 80053; 80162; 80305; 81001; 82270; 82553; 82728; 82962; 83036; 83540; 83550; 83735; 84439; 84443; 84484; 84550; 85025; 85610; 85730; 86850; 86900; 87015; 87045; 87177; 87209; 87427; 87449; 87493; 89055; 93005; 93970; 96365; 96375; 97110; 97116; 97162; 97165; 99285; C1893; C9113; J1815; J2270; J7040; J7050

== ENCOUNTER 2017-03-02 22:45 | Inpatient (IN) | payer MEDICARE, OTHER ==
[~2017-03-02] VITALS: Ht 154.9 cm; Wt 78.5 kg
[~2017-03-02 22:45] MED LIST changes: +ASPI-986 PO; +CARV6.2548 PO; +CLOP75TA33 PO; +ELIQ
[2017-03-02] MEDS ORDERED: ASPIRIN 81MG TABLET PO ONE (23:15)
[2017-03-02] MEDS ORDERED: NITROGLYCERIN OINT 1GM/INCH UDPKT TD ONE (23:15)
[2017-03-02 23:33] LABS: BASOPHILS % 0.7 % (0.0-2.0); EOSINOPHILS % 1.4 % (0.0-5.0); HEMATOCRIT. 38.4 % (36.0-48.0); MEAN CORPUSCULAR HEMOGLOBIN 28.3 pg (28.0-32.0); MEAN CORPUSCULAR VOLUME 90.5 fL (81.0-99.0); MEAN PLATELET VOLUME 10.2 fl (7.4-10.4); MONOCYTES % 6.4 % (2.0-8.0); NEUTROPHILS % 78.5 % (40.0-76.0); PLATELET 240 x1000/uL (130-400); RED BLOOD CELL COUNT 4.25 mill/uL (4.2-5.4); RED CELL DISTRIBUTION WIDTH 18.8 % (11.6-14.6)
[2017-03-02 23:40] LABS: D-DIMER 0.88 mg/L FEU (<0.50); PROTHROMBIN TIME 10.7 sec (9.4-11.6)
[2017-03-02 23:45] LABS: CARBON DIOXIDE 25 mEq/L (21-32); CHLORIDE 108 mEq/L (98-107); ETHANOL BLOOD < 10 mg/dL; TROPONIN I 0.03 ng/mL (0.00-0.04)
[2017-03-03] MEDS ORDERED: INSULIN REGULAR (HUMULIN R) 300UNITS/3ML IV NR ×2 (00:15→03:15)
[2017-03-03] MEDS ORDERED: FUROSEMIDE 40MG/4ML VIAL IVP NR (00:15)
[2017-03-03 02:42] LABS: CLARITY URINE CLEAR (CLEAR); COLOR URINE YELLOW (YELLOW); GLUCOSE URINE TRACE (NEGATIVE); KETONES URINE NEGATIVE (NEGATIVE); LEUKOCYTE ESTERASE URINE NEGATIVE (NEGATIVE); NITRITE URINE NEGATIVE (NEGATIVE); OCCULT BLOOD URINE NEGATIVE (NEGATIVE); PROTEIN URINE TRACE (NEGATIVE); SPECIFIC GRAVITY URINE 1.011 (1.005-1.030); UROBILINOGEN URINE 0.2 E.U./dL (0.2-1.0)
[2017-03-03] MEDS ORDERED: FUROSEMIDE 100MG/10ML VIAL IV NR (03:11)
[2017-03-03] MEDS ORDERED: CEFTRIAXONE SODIUM 1 G/VIAL IV ONE (03:15)
[2017-03-03] MEDS ORDERED: SODIUM BICARBONATE 8.4% 1 MEQ/ML 50ML SYR IV NR (03:15)
[2017-03-03] MEDS ORDERED: SODIUM POLYSTYRENE SULFONATE 15 G/60 ML BOT PO NR ×4 (03:15→11:45)
[2017-03-03] MEDS ORDERED: CALCIUM CHLORIDE 1GM/10ML SYR IV NR (03:15)
[2017-03-03] MEDS ORDERED: SODIUM CHLORIDE 0.9% 1000ML BAG (SEPSIS BOLUS) IV NR (03:15)
[2017-03-03] MEDS ORDERED: AZITHROMYCIN 500 MG TABLET PO NR (03:15)
[2017-03-03 03:34] LABS: *AMPHETAMINES SCREEN URINE NEGATIVE (NEGATIVE); *BARBITURATES SCREEN URINE NEGATIVE (NEGATIVE); *BENZODIAZEPINES SCREEN URINE NEGATIVE (NEGATIVE); *COCAINE SCREEN URINE NEGATIVE (NEGATIVE); CANNABINOID URINE SCREEN NEGATIVE (NEGATIVE); METHADONE URINE SCREEN NEGATIVE (NEGATIVE); OPIATES URINE SCREEN NEGATIVE (NEGATIVE); PHENCYCLIDINE URINE SCREEN NEGATIVE (NEGATIVE)
[2017-03-03] MEDS ORDERED: GUAIFENESIN 200MG/10ML SUGAR FREE UDC PO PRN (03:45)
[2017-03-03] MEDS ORDERED: CLONIDINE 0.1MG TABLET PO PRN (03:45)
[2017-03-03] MEDS ORDERED: ONDANSETRON HCL 4MG/2ML VIAL IV PRN ×2 (03:45→04:00)
[2017-03-03] MEDS ORDERED: DIPHENHYDRAMINE 50MG/ML VIAL IV PRN (03:45)
[2017-03-03] MEDS ORDERED: CEFTRIAXONE 1GM PREMIX 50ML IV NR (03:45)
[2017-03-03] MEDS ORDERED: IPRATROPIUM/ALBUTEROL 0.5-3(2.5)MG/3ML NEB INH PRN (03:45)
[2017-03-03] MEDS ORDERED: SODIUM CHLORIDE 0.9% INJ 3ML FLUSH IVF SCH (06:00)
[2017-03-03 06:09] VITALS: BP 170/99
[2017-03-03] MEDS: ACETAMINOPHEN 325MG TABLET PO PRN ×2 (07:12→12:41)
[2017-03-03] MEDS: SODIUM CHLORIDE 0.9% INJ 3ML FLUSH IVF SCH ×3 (07:15→21:13)
[2017-03-03 08:00] VITALS: BP 162/83
[2017-03-03] MEDS: IPRATROPIUM/ALBUTEROL 0.5-3(2.5)MG/3ML NEB HHN SCH ×4 (08:54→21:05)
[2017-03-03] MEDS: SUCRALFATE 1 G/10 ML UDC PO SCH (09:30)
[2017-03-03] MEDS ORDERED: DEXTROSE 50% WATER 50ML SYRINGE IV PRN ×2 (09:30→13:30)
[2017-03-03] MEDS: CLOPIDOGREL 75MG TABLET PO SCH (09:58)
[2017-03-03] MEDS: LOSARTAN POTASSIUM 100 MG TABLET PO SCH (09:58)
[2017-03-03] MEDS: METOPROLOL TARTRATE 100MG TABLET PO SCH ×2 (09:58→20:12)
[2017-03-03] MEDS: GABAPENTIN 300MG CAPSULE PO SCH ×2 (09:58→16:46)
[2017-03-03] MEDS: DILTIAZEM HCL 180MG CAPSULE CD 24HR PO SCH (09:59)
[2017-03-03] MEDS ORDERED: APIXABAN 2.5 MG TABLET PO SCH ×3 (10:00→17:00)
[2017-03-03] MEDS ORDERED: INSULIN DETEMIR UD 100 UNITS/ML SYR SUBCUT NR (10:00)
[2017-03-03] MEDS: APIXABAN 2.5 MG TABLET PO SCH ×2 (10:41→16:46)
[2017-03-03] MEDS: ASPIRIN 81MG EC TABLET PO SCH (11:30)
[2017-03-03] MEDS: BLOOD SUGAR DIAGNOSTIC STRIP TEST SCH ×3 (12:12→20:13)
[2017-03-03] MEDS ORDERED: INSULIN LISPRO 100 UNITS/ML SUBCUT SCH (12:40)
[2017-03-03] MEDS: INSULIN LISPRO 100 UNITS/ML SUBCUT SCH ×3 (13:36→20:19)
[2017-03-03 16:21] VITALS: BP 167/79
[2017-03-03 20:00] VITALS: BP 157/65
[2017-03-03] MEDS: RANOLAZINE 500 MG TAB.SR.12H PO SCH (20:12)
[2017-03-03] MEDS: INSULIN DETEMIR UD 100 UNITS/ML SYR SUBCUT SCH ×2 (21:00→21:15)
[2017-03-04] VITALS: BP 125/66
[2017-03-04] MEDS: IPRATROPIUM/ALBUTEROL 0.5-3(2.5)MG/3ML NEB HHN SCH ×3 (00:50→12:00)
[2017-03-04 04:00] VITALS: BP 148/91
[2017-03-04] MEDS: INSULIN LISPRO 100 UNITS/ML SUBCUT SCH ×2 (06:18→12:00)
[2017-03-04] MEDS: SODIUM CHLORIDE 0.9% INJ 3ML FLUSH IVF SCH (06:18)
[2017-03-04] MEDS: BLOOD SUGAR DIAGNOSTIC STRIP TEST SCH ×2 (06:18→11:52)
[2017-03-04] MEDS: LEVOTHYROXINE SODIUM 25MCG TABLET PO SCH ×2 (06:18→09:30)
[2017-03-04] MEDS ORDERED: PANTOPRAZOLE 40MG DR TABLET PO SCH (07:10)
[2017-03-04] MEDS ORDERED: THROAT LOZENGES-BENZOCAINE/MENTH/CETYLPYRD CL LOZENGES MM PRN (07:15)
[2017-03-04 08:00] VITALS: BP 133/54
[2017-03-04 08:08] LABS: BASOPHILS % 0.5 % (0.0-2.0); EOSINOPHILS % 2.4 % (0.0-5.0); HEMATOCRIT. 39.4 % (36.0-48.0); LYMPHOCYTES % 19.9 % (20.0-50.0); MEAN CORPUSCULAR HEMOGLOBIN 29.2 pg (28.0-32.0); MEAN CORPUSCULAR VOLUME 88.9 fL (81.0-99.0); MEAN PLATELET VOLUME 10.4 fl (7.4-10.4); MONOCYTES % 9.1 % (2.0-8.0); NEUTROPHILS % 68.1 % (40.0-76.0); PLATELET 251 x1000/uL (130-400); RED BLOOD CELL COUNT 4.44 mill/uL (4.2-5.4); RED CELL DISTRIBUTION WIDTH 18.8 % (11.6-14.6)
[2017-03-04 08:10] LABS: CARBON DIOXIDE 24 mEq/L (21-32); CHLORIDE 110 mEq/L (98-107); CREATINE KINASE 53 IU/L (26-192); CREATINE KINASE MB FRACTION 1.7 ng/mL (0.5-3.6); HDL CHOLESTEROL 37 mg/dL (40-59); LDL CHOLESTEROL 73 mg/dL (5-100); TROPONIN I 0.06 ng/mL (0.00-0.04)
[2017-03-04] MEDS ORDERED: FUROSEMIDE 40MG TABLET PO SCH (09:00)
[2017-03-04] MEDS: LOSARTAN POTASSIUM 100 MG TABLET PO SCH (09:31)
[2017-03-04] MEDS: RANOLAZINE 500 MG TAB.SR.12H PO SCH (09:31)
[2017-03-04] MEDS: DILTIAZEM HCL 180MG CAPSULE CD 24HR PO SCH (09:31)
[2017-03-04] MEDS: METOPROLOL TARTRATE 100MG TABLET PO SCH (09:31)
[2017-03-04] MEDS: ASPIRIN 81MG EC TABLET PO SCH (09:31)
[2017-03-04] MEDS: GABAPENTIN 300MG CAPSULE PO SCH (09:31)
[2017-03-04] MEDS: CLOPIDOGREL 75MG TABLET PO SCH (09:31)
[2017-03-04] MEDS: APIXABAN 2.5 MG TABLET PO SCH (09:32)
[2017-03-04] MEDS: SUCRALFATE 1 G/10 ML UDC PO SCH (09:32)
[2017-03-04 12:00] VITALS: BP 125/51
[2017-03-04 13:39] VITALS: BP 125/51
[2017-03-04] MEDS ORDERED: DIGOXIN 125MCG TABLET PO SCH (18:00)
== END 2017-03-04 14:18 | disposition home or self-care (01) | DRG 292 ==
LOC: ER 22:52 → 8WST 03-03 00:13 → ENRESERV 03-03 02:19
PROVIDERS: ADMIT Internal Medicine; ATTEND Internal Medicine
DX: I13.0 Hypertensive heart and chronic kidney disease with heart failure and stage 1 through stage 4 chronic kidney disease, or unspecified chronic kidney disease (principal); E46 Unspecified protein-calorie malnutrition; E87.2 Acidosis; E11.40 Type 2 diabetes mellitus with diabetic neuropathy, unspecified; E11.22 Type 2 diabetes mellitus with diabetic chronic kidney disease; E11.65 Type 2 diabetes mellitus with hyperglycemia; E87.5 Hyperkalemia; I48.2 Chronic atrial fibrillation; I42.9 Cardiomyopathy, unspecified; B35.6 Tinea cruris; I25.119 Atherosclerotic heart disease of native coronary artery with unspecified angina pectoris; I25.2 Old myocardial infarction; N18.9 Chronic kidney disease, unspecified; I50.9 Heart failure, unspecified; E03.9 Hypothyroidism, unspecified; E78.00 Pure hypercholesterolemia, unspecified; Z79.4 Long term (current) use of insulin; Z87.11 Personal history of peptic ulcer disease; Z95.0 Presence of cardiac pacemaker; Z95.1 Presence of aortocoronary bypass graft; Z95.5 Presence of coronary angioplasty implant and graft; Z98.84 Bariatric surgery status; Z88.1 Allergy status to other antibiotic agents; Z88.2 Allergy status to sulfonamides; Z88.8 Allergy status to other drugs, medicaments and biological substances; Z91.018 Allergy to other foods; Z79.82 Long term (current) use of aspirin; Z79.899 Other long term (current) drug therapy; Z72.89 Other problems related to lifestyle; Z68.32 Body mass index [BMI] 32.0-32.9, adult
CPT/HCPCS: 36415; 71010; 80053; 80061; 80305; 81001; 82550; 82553; 82962; 83605; 83690; 83735; 83880; 84132; 84443; 84484; 85025; 85379; 85610; 87040; 93005; 94640; 94664; 96374; 96375; 99291; G0482; J1815; J1940; J7030; J7620

== ENCOUNTER 2017-03-13 20:26 | Inpatient (IN) | payer MEDICARE, OTHER ==
[~2017-03-13] VITALS: Ht 154.9 cm; Wt 85.3 kg
[2017-03-13] MEDS ORDERED: ACETAMINOPHEN 325MG TABLET PO STA (21:01)
[2017-03-13] MEDS ORDERED: MORPHINE SULFATE 4 MG/ML CPJ (NOT FOR IM USE) IV STA (21:01)
[2017-03-13] MEDS ORDERED: ONDANSETRON HCL 4MG/2ML VIAL IV STA (21:01)
[2017-03-13] MEDS ORDERED: AZITHROMYCIN 500 MG TABLET PO ONE (21:15)
[2017-03-13 21:35] LABS: BG BASE EXCESS -2.4 mmol/L (-2.0-2.0); BG DEOXYHEMOGLOBIN 1.6 % (0.0-5.0); BG FRACTION INSPIRED OXYGEN 40; BG HCO3 ACT 22.9 mmol/L (22.0-26.0); BG OXYGEN SATURATION 98.4 % (92.0-98.5); BG OXYHEMOGLOBIN 97.4 % (94.0-97.0); BG PCO2 41.1 mmHg (35.0-45.0); BG PH 7.363 (7.350-7.450); BG PO2 145.3 mmHg (75.0-100.0); BG SAMPLE SITE RIGHT RADIAL; BG TOTAL HEMOGLOBIN 12.2 g/dL (12.0-18.0); BG VENT MODE MASK - SIMPLE
[2017-03-13 21:48] LABS: HEMATOCRIT. 36.3 % (36.0-48.0); HEMOGLOBIN. 11.7 g/dL (12.0-16.0); MEAN CORPUSCULAR HEMOGLOBIN 28.9 pg (28.0-32.0); MEAN CORPUSCULAR VOLUME 89.7 fL (81.0-99.0); MEAN PLATELET VOLUME 10.4 fl (7.4-10.4); PLATELET 219 x1000/uL (130-400); RED BLOOD CELL COUNT 4.05 mill/uL (4.2-5.4); RED CELL DISTRIBUTION WIDTH 18.2 % (11.6-14.6)
[2017-03-13 21:54] LABS: CHLORIDE 109 mEq/L (98-107)
[2017-03-13 21:56] LABS: D-DIMER 0.78 mg/L FEU (<0.50); INR 1.1
[2017-03-13 21:57] LABS: CARBON DIOXIDE 25 mEq/L (21-32)
[2017-03-13 22:07] LABS: TROPONIN I 0.51 ng/mL (0.00-0.04)
[2017-03-13 22:08] LABS: ATYPICAL LYMPHOCYTES 1; PLATELET ESTIMATE NORMAL
[2017-03-13 22:34] LABS: CLARITY URINE CLOUDY (CLEAR); COLOR URINE YELLOW (YELLOW); GLUCOSE URINE NEGATIVE (NEGATIVE); KETONES URINE NEGATIVE (NEGATIVE); LEUKOCYTE ESTERASE URINE 2+ (NEGATIVE); NITRITE URINE NEGATIVE (NEGATIVE); OCCULT BLOOD URINE 1+ (NEGATIVE); PROTEIN URINE 3+ (NEGATIVE); SPECIFIC GRAVITY URINE 1.024 (1.005-1.030); UROBILINOGEN URINE 0.2 E.U./dL (0.2-1.0)
[2017-03-14] VITALS (12 sets, daily range): BP systolic 105–141; BP diastolic 47–97
[2017-03-14] MEDS ORDERED: DIPHENHYDRAMINE 50MG/ML VIAL IV PRN (02:30)
[2017-03-14] MEDS ORDERED: ONDANSETRON HCL 4MG/2ML VIAL IV PRN (02:30)
[2017-03-14] MEDS ORDERED: DEXTROSE 50% WATER 50ML SYRINGE IV PRN (02:30)
[2017-03-14] MEDS ORDERED: MAGNESIUM HYDROXIDE 400MG/5ML 30ML UDC PO PRN (02:30)
[2017-03-14] MEDS ORDERED: MAGNESIUM/ALUMINUM HYDROXIDE/SIMETHICONE 30ML UDC PO PRN (02:30)
[2017-03-14] MEDS ORDERED: IPRATROPIUM/ALBUTEROL 0.5-3(2.5)MG/3ML NEB INH PRN (02:30)
[2017-03-14] MEDS ORDERED: CLONIDINE 0.1MG TABLET PO PRN (02:30)
[2017-03-14] MEDS: SODIUM CHLORIDE 0.45% 1,000 ML IV SCH ×2 (05:00→11:23)
[2017-03-14] MEDS: LEVOTHYROXINE SODIUM 25MCG TABLET PO SCH (06:20)
[2017-03-14] MEDS: SODIUM CHLORIDE 0.9% INJ 3ML FLUSH IVF SCH ×3 (06:20→22:33)
[2017-03-14] MEDS: PANTOPRAZOLE 40MG DR TABLET PO SCH (06:20)
[2017-03-14] MEDS: BLOOD SUGAR DIAGNOSTIC STRIP TEST SCH ×4 (06:20→21:16)
[2017-03-14] MEDS: INSULIN LISPRO 100 UNITS/ML SUBCUT SCH ×4 (06:25→21:00)
[2017-03-14] MEDS: GUAIFENESIN 600MG ER TABLET PO SCH ×2 (09:00→21:08)
[2017-03-14] MEDS ORDERED: METOPROLOL TARTRATE 100MG TABLET PO SCH (09:00)
[2017-03-14] MEDS ORDERED: FUROSEMIDE 40MG/4ML VIAL IVP SCH (09:00)
[2017-03-14] MEDS: GABAPENTIN 300MG CAPSULE PO SCH ×2 (09:24→21:08)
[2017-03-14] MEDS: LOSARTAN POTASSIUM 100 MG TABLET PO SCH (09:24)
[2017-03-14] MEDS: ASPIRIN 81MG EC TABLET PO SCH (09:25)
[2017-03-14] MEDS: RANOLAZINE 500 MG TAB.SR.12H PO SCH ×2 (09:25→21:08)
[2017-03-14] MEDS: CLOPIDOGREL 75MG TABLET PO SCH (09:25)
[2017-03-14] MEDS: APIXABAN 2.5 MG TABLET PO SCH (09:25)
[2017-03-14] MEDS: INSULIN DETEMIR UD 100 UNITS/ML SYR SUBCUT SCH ×2 (09:30→22:37)
[2017-03-14] MEDS ORDERED: INSULIN DETEMIR UD 100 UNITS/ML SYR SUBCUT SCH (10:00)
[2017-03-14] MEDS ORDERED: CEFAZOLIN SODIUM 1000MG/VIAL IV SCH (11:00)
[2017-03-14] MEDS: CEFAZOLIN 1000MG PREMIX 50 ML IV SCH ×2 (13:16→19:54)
[2017-03-14] MEDS ORDERED: IODIXANOL 320MG/ML 100 ML BOTTLE IV ONE (14:35)
[2017-03-14] MEDS ORDERED: LIDOCAINE HCL 1% 20ML VIAL (Pyxis) INJ ONE (14:35)
[2017-03-14] MEDS ORDERED: FENTANYL CITRATE/PF 50MCG/ML 2ML VIAL ONE (14:49)
[2017-03-14] MEDS ORDERED: MIDAZOLAM HCL 2 MG/2 ML VIAL ONE (14:49)
[2017-03-14] MEDS ORDERED: FUROSEMIDE 40MG/4ML VIAL ONE (15:25)
[2017-03-14] MEDS ORDERED: ACETAMINOPHEN 325MG TABLET PO PRN (15:45)
[2017-03-14] MEDS ORDERED: ATROPINE SULFATE 1MG/10ML SYR IV PRN (15:45)
[2017-03-14] MEDS: DIGOXIN 125MCG TABLET PO SCH (18:21)
[2017-03-14] MEDS: ACETAMINOPHEN 325MG TABLET PO PRN (19:54)
[2017-03-14] MEDS: CARVEDILOL 25MG TABLET PO SCH (21:09)
[2017-03-15] VITALS: BP 111/59
[2017-03-15 04:00] VITALS: BP 96/51
[2017-03-15] MEDS: CEFAZOLIN 1000MG PREMIX 50 ML IV SCH ×3 (04:51→20:55)
[2017-03-15] MEDS: SODIUM CHLORIDE 0.9% INJ 3ML FLUSH IVF SCH ×3 (05:09→20:56)
[2017-03-15 05:46] LABS: BASOPHILS % 0.4 % (0.0-2.0); HEMATOCRIT. 34.5 % (36.0-48.0); HEMOGLOBIN. 10.8 g/dL (12.0-16.0); LYMPHOCYTES % 22.6 % (20.0-50.0); MEAN CORPUSCULAR HEMOGLOBIN 28.4 pg (28.0-32.0); MEAN CORPUSCULAR VOLUME 90.5 fL (81.0-99.0); MEAN PLATELET VOLUME 10.9 fl (7.4-10.4); PLATELET 195 x1000/uL (130-400); RED BLOOD CELL COUNT 3.82 mill/uL (4.2-5.4)
[2017-03-15] MEDS: LEVOTHYROXINE SODIUM 25MCG TABLET PO SCH (06:07)
[2017-03-15] MEDS: PANTOPRAZOLE 40MG DR TABLET PO SCH (06:08)
[2017-03-15] MEDS: BLOOD SUGAR DIAGNOSTIC STRIP TEST SCH ×4 (06:08→21:07)
[2017-03-15] MEDS: INSULIN LISPRO 100 UNITS/ML SUBCUT SCH ×4 (06:18→21:00)
[2017-03-15 08:00] VITALS: BP 100/70
[2017-03-15] MEDS: CARVEDILOL 25MG TABLET PO SCH (09:00)
[2017-03-15] MEDS: GUAIFENESIN 600MG ER TABLET PO SCH ×2 (09:00→20:55)
[2017-03-15] MEDS: LOSARTAN POTASSIUM 100 MG TABLET PO SCH (09:00)
[2017-03-15] MEDS: GABAPENTIN 300MG CAPSULE PO SCH ×2 (10:07→20:55)
[2017-03-15] MEDS: CLOPIDOGREL 75MG TABLET PO SCH (10:07)
[2017-03-15] MEDS: ASPIRIN 81MG EC TABLET PO SCH (10:07)
[2017-03-15] MEDS: RANOLAZINE 500 MG TAB.SR.12H PO SCH ×2 (10:07→20:55)
[2017-03-15] MEDS: FUROSEMIDE 40MG TABLET PO SCH (10:07)
[2017-03-15] MEDS: INSULIN DETEMIR UD 100 UNITS/ML SYR SUBCUT SCH ×2 (10:09→21:07)
[2017-03-15 12:00] VITALS: BP 115/95
[2017-03-15 15:58] VITALS: BP 118/58
[2017-03-15] MEDS: DIGOXIN 125MCG TABLET PO SCH (18:21)
[2017-03-15 20:00] VITALS: BP 139/55
[2017-03-15] MEDS: CARVEDILOL 12.5MG TABLET PO SCH (20:55)
[2017-03-15] MEDS: ACETAMINOPHEN 325MG TABLET PO PRN (20:56)
[2017-03-16 00:07] VITALS: BP 139/55
[2017-03-16 04:00] VITALS: BP 111/58
[2017-03-16] MEDS: PANTOPRAZOLE 40MG DR TABLET PO SCH (05:42)
[2017-03-16] MEDS: SODIUM CHLORIDE 0.9% INJ 3ML FLUSH IVF SCH ×3 (05:42→21:34)
[2017-03-16] MEDS: LEVOTHYROXINE SODIUM 25MCG TABLET PO SCH (05:42)
[2017-03-16] MEDS: SODIUM CHLORIDE 0.45% 1,000 ML IV SCH ×2 (05:42→21:59)
[2017-03-16] MEDS: CEFAZOLIN 1000MG PREMIX 50 ML IV SCH ×3 (05:42→20:21)
[2017-03-16] MEDS: BLOOD SUGAR DIAGNOSTIC STRIP TEST SCH ×4 (05:43→20:29)
[2017-03-16] MEDS: INSULIN LISPRO 100 UNITS/ML SUBCUT SCH ×4 (05:47→21:35)
[2017-03-16 08:00] VITALS: BP 163/70
[2017-03-16] MEDS: GUAIFENESIN 600MG ER TABLET PO SCH ×2 (08:40→21:34)
[2017-03-16] MEDS: GABAPENTIN 300MG CAPSULE PO SCH ×2 (08:40→21:34)
[2017-03-16] MEDS: RANOLAZINE 500 MG TAB.SR.12H PO SCH ×2 (08:40→21:33)
[2017-03-16] MEDS: FUROSEMIDE 40MG TABLET PO SCH (08:40)
[2017-03-16] MEDS: CARVEDILOL 12.5MG TABLET PO SCH ×2 (08:41→21:33)
[2017-03-16] MEDS: LOSARTAN POTASSIUM 100 MG TABLET PO SCH (08:41)
[2017-03-16] MEDS: ASPIRIN 81MG EC TABLET PO SCH (08:41)
[2017-03-16] MEDS: CLOPIDOGREL 75MG TABLET PO SCH (08:42)
[2017-03-16] MEDS: INSULIN DETEMIR UD 100 UNITS/ML SYR SUBCUT SCH ×2 (09:05→21:58)
[2017-03-16] MEDS ORDERED: NITROGLYCERIN 0.4MG TABLET SL SL PRN (09:15)
[2017-03-16 12:00] VITALS: BP 136/66
[2017-03-16 16:00] VITALS: BP 124/59
[2017-03-16] MEDS: DIGOXIN 125MCG TABLET PO SCH (17:10)
[2017-03-16 20:00] VITALS: BP 152/79
[2017-03-16] MEDS: ACETAMINOPHEN 325MG TABLET PO PRN (21:54)
[2017-03-17] VITALS: BP 126/57
[2017-03-17 04:00] VITALS: BP 141/60
[2017-03-17] MEDS: CEFAZOLIN 1000MG PREMIX 50 ML IV SCH ×3 (05:04→21:19)
[2017-03-17] MEDS: MORPHINE SULFATE 10 MG/ML CPJ IV PRN ×2 (05:20→12:58)
[2017-03-17] MEDS: SODIUM CHLORIDE 0.9% INJ 3ML FLUSH IVF SCH ×3 (05:24→22:02)
[2017-03-17] MEDS: INSULIN LISPRO 100 UNITS/ML SUBCUT SCH ×4 (06:08→21:00)
[2017-03-17] MEDS: BLOOD SUGAR DIAGNOSTIC STRIP TEST SCH ×4 (06:08→21:40)
[2017-03-17] MEDS: PANTOPRAZOLE 40MG DR TABLET PO SCH (06:08)
[2017-03-17] MEDS: LEVOTHYROXINE SODIUM 25MCG TABLET PO SCH (06:08)
[2017-03-17 08:00] VITALS: BP 155/61
[2017-03-17] MEDS: GABAPENTIN 300MG CAPSULE PO SCH ×2 (09:31→22:02)
[2017-03-17] MEDS: RANOLAZINE 500 MG TAB.SR.12H PO SCH ×2 (09:31→22:02)
[2017-03-17] MEDS: CARVEDILOL 12.5MG TABLET PO SCH ×2 (09:33→22:01)
[2017-03-17] MEDS: FUROSEMIDE 40MG TABLET PO SCH (09:34)
[2017-03-17] MEDS: GUAIFENESIN 600MG ER TABLET PO SCH ×2 (09:34→22:02)
[2017-03-17] MEDS: LOSARTAN POTASSIUM 100 MG TABLET PO SCH (09:34)
[2017-03-17] MEDS: CLOPIDOGREL 75MG TABLET PO SCH (09:34)
[2017-03-17] MEDS: ASPIRIN 81MG EC TABLET PO SCH (09:34)
[2017-03-17] MEDS: INSULIN DETEMIR UD 100 UNITS/ML SYR SUBCUT SCH ×2 (09:36→21:43)
[2017-03-17 12:00] VITALS: BP 145/85
[2017-03-17] MEDS: SODIUM CHLORIDE 0.45% 1,000 ML IV SCH (12:57)
[2017-03-17 16:00] VITALS: BP 125/80
[2017-03-17] MEDS: DIGOXIN 125MCG TABLET PO SCH (17:37)
[2017-03-17] MEDS: APIXABAN 2.5 MG TABLET PO SCH (17:37)
[2017-03-17 20:00] VITALS: BP 160/83
[2017-03-18] VITALS: BP 128/72
[2017-03-18] MEDS: SODIUM CHLORIDE 0.45% 1,000 ML IV SCH (01:45)
[2017-03-18] MEDS: CEFAZOLIN 1000MG PREMIX 50 ML IV SCH ×2 (03:39→11:58)
[2017-03-18 04:00] VITALS: BP 136/56
[2017-03-18] MEDS: SODIUM CHLORIDE 0.9% INJ 3ML FLUSH IVF SCH ×2 (06:00→13:04)
[2017-03-18] MEDS: BLOOD SUGAR DIAGNOSTIC STRIP TEST SCH ×2 (06:06→11:45)
[2017-03-18] MEDS: INSULIN LISPRO 100 UNITS/ML SUBCUT SCH ×2 (06:06→11:58)
[2017-03-18] MEDS: PANTOPRAZOLE 40MG DR TABLET PO SCH (06:07)
[2017-03-18] MEDS: LEVOTHYROXINE SODIUM 25MCG TABLET PO SCH (06:07)
[2017-03-18 06:28] LABS: BASOPHILS % 0.8 % (0.0-2.0); EOSINOPHILS % 4.2 % (0.0-5.0); HEMATOCRIT. 33.9 % (36.0-48.0); HEMOGLOBIN. 11.1 g/dL (12.0-16.0); LYMPHOCYTES % 21.6 % (20.0-50.0); MEAN PLATELET VOLUME 10.4 fl (7.4-10.4); MONOCYTES % 11.3 % (2.0-8.0); NEUTROPHILS % 62.1 % (40.0-76.0); PLATELET 259 x1000/uL (130-400); RED BLOOD CELL COUNT 3.81 mill/uL (4.2-5.4); RED CELL DISTRIBUTION WIDTH 17.4 % (11.6-14.6)
[2017-03-18 08:00] VITALS: BP 138/48
[2017-03-18] MEDS: GABAPENTIN 300MG CAPSULE PO SCH (09:25)
[2017-03-18] MEDS: LOSARTAN POTASSIUM 100 MG TABLET PO SCH (09:25)
[2017-03-18] MEDS: APIXABAN 2.5 MG TABLET PO SCH (09:26)
[2017-03-18] MEDS: ASPIRIN 81MG EC TABLET PO SCH (09:26)
[2017-03-18] MEDS: FUROSEMIDE 40MG TABLET PO SCH (09:26)
[2017-03-18] MEDS: CARVEDILOL 12.5MG TABLET PO SCH (09:26)
[2017-03-18] MEDS: GUAIFENESIN 600MG ER TABLET PO SCH (09:26)
[2017-03-18] MEDS: RANOLAZINE 500 MG TAB.SR.12H PO SCH (09:26)
[2017-03-18] MEDS: CLOPIDOGREL 75MG TABLET PO SCH (09:26)
[2017-03-18] MEDS: INSULIN DETEMIR UD 100 UNITS/ML SYR SUBCUT SCH (09:27)
[2017-03-18 12:03] VITALS: BP 107/56
[2017-03-18] MEDS ORDERED: SODIUM POLYSTYRENE SULFONATE 15 G/60 ML BOT PO SCH (12:15)
[2017-03-18 16:00] VITALS: BP 145/76
[2017-03-18 17:27] VITALS: BP 145/76
== END 2017-03-18 17:50 | disposition home or self-care (01) | DRG 871 ==
LOC: ER 20:26 → 5WST 22:39 → EDBEDREQ 22:43 → ENRESERV 22:56 → 5WST 03-14 04:38
PROVIDERS: ADMIT Internal Medicine; ATTEND Internal Medicine
PROC: 4A023N7 Measurement of Cardiac Sampling and Pressure, Left Heart, Percutaneous Approach (ICD-10-PCS; 2017-03-14)
PROC: B2111ZZ Fluoroscopy of Multiple Coronary Arteries using Low Osmolar Contrast (ICD-10-PCS; 2017-03-14)
PROC: B2151ZZ Fluoroscopy of Left Heart using Low Osmolar Contrast (ICD-10-PCS; 2017-03-14)
PROC: 5A12012 Performance of Cardiac Output, Single, Manual (ICD-10-PCS; principal; 2017-03-18)
DX: A41.59 Other Gram-negative sepsis (principal); I21.4 Non-ST elevation (NSTEMI) myocardial infarction; N17.9 Acute kidney failure, unspecified; I25.110 Atherosclerotic heart disease of native coronary artery with unstable angina pectoris; N12 Tubulo-interstitial nephritis, not specified as acute or chronic; I42.9 Cardiomyopathy, unspecified; E11.22 Type 2 diabetes mellitus with diabetic chronic kidney disease; E11.319 Type 2 diabetes mellitus with unspecified diabetic retinopathy without macular edema; E11.40 Type 2 diabetes mellitus with diabetic neuropathy, unspecified; E11.65 Type 2 diabetes mellitus with hyperglycemia; I48.2 Chronic atrial fibrillation; M19.90 Unspecified osteoarthritis, unspecified site; G47.33 Obstructive sleep apnea (adult) (pediatric); E03.9 Hypothyroidism, unspecified; E78.00 Pure hypercholesterolemia, unspecified; Z60.2 Problems related to living alone; K57.90 Diverticulosis of intestine, part unspecified, without perforation or abscess without bleeding; N18.9 Chronic kidney disease, unspecified; E87.5 Hyperkalemia; D64.9 Anemia, unspecified; E66.9 Obesity, unspecified; E78.5 Hyperlipidemia, unspecified; I13.10 Hypertensive heart and chronic kidney disease without heart failure, with stage 1 through stage 4 chronic kidney disease, or unspecified chronic kidney disease; Z95.0 Presence of cardiac pacemaker; Z95.1 Presence of aortocoronary bypass graft; Z95.5 Presence of coronary angioplasty implant and graft; Z87.11 Personal history of peptic ulcer disease; Z98.84 Bariatric surgery status; Z79.899 Other long term (current) drug therapy; Z79.02 Long term (current) use of antithrombotics/antiplatelets; Z79.01 Long term (current) use of anticoagulants; Z88.2 Allergy status to sulfonamides; Z88.8 Allergy status to other drugs, medicaments and biological substances; Z87.891 Personal history of nicotine dependence; Z79.82 Long term (current) use of aspirin; Z79.4 Long term (current) use of insulin; I25.2 Old myocardial infarction; Z68.35 Body mass index [BMI] 35.0-35.9, adult
CPT/HCPCS: 36415; 36600; 71010; 80048; 80053; 81001; 82375; 82805; 82962; 83605; 83690; 83880; 84484; 85025; 85379; 85610; 87040; 87077; 87086; 87186; 87804; 93005; 93306; 93458; 96374; 96375; 99285; C1760; C1769; C1887; C1893; J0690; J1644; J1815; J1940; J2250; J2270; J2405; J3010; J3490; Q9967

== ENCOUNTER 2017-06-11 19:57 | Emergency (ER) | payer MEDICARE, OTHER ==
[~2017-06-11] VITALS: Ht 165.1 cm; Wt 72.0 kg
[~2017-06-11 19:57] MED LIST changes: +APIX2.5T PO; +ASCO500C18 PO; -ASPI-986 PO; -CARV6.2548 PO; -ELIQ; +FURO-151 PO; -FURO40TA5 PO; +SUCR1TAB PO
[2017-06-11 21:50] LABS: BASOPHILS % 0.5 % (0.0-2.0); EOSINOPHILS % 1.3 % (0.0-5.0); HEMATOCRIT. 34.6 % (36.0-48.0); LYMPHOCYTES % 12.4 % (20.0-50.0); MEAN CORPUSCULAR HEMOGLOBIN 27.7 pg (28.0-32.0); MEAN CORPUSCULAR VOLUME 87.6 fL (81.0-99.0); MEAN PLATELET VOLUME 9.6 fl (7.4-10.4); MONOCYTES % 7.8 % (2.0-8.0); PLATELET 355 x1000/uL (130-400); RED BLOOD CELL COUNT 3.96 mill/uL (4.2-5.4); RED CELL DISTRIBUTION WIDTH 16.6 % (11.6-14.6)
[2017-06-11 22:02] LABS: TROPONIN I 0.03 ng/mL (0.00-0.04)
[2017-06-11 23:52] VITALS: BP 144/70
== END 2017-06-11 23:59 | disposition home or self-care (01) ==
LOC: ER 19:57
DX: I20.9 Angina pectoris, unspecified (principal); R07.89 Other chest pain; I11.0 Hypertensive heart disease with heart failure; I50.9 Heart failure, unspecified; E11.9 Type 2 diabetes mellitus without complications; I48.91 Unspecified atrial fibrillation; Z79.4 Long term (current) use of insulin; Z88.2 Allergy status to sulfonamides; Z88.8 Allergy status to other drugs, medicaments and biological substances; Z91.041 Radiographic dye allergy status; Z79.01 Long term (current) use of anticoagulants; Z95.0 Presence of cardiac pacemaker; Z95.1 Presence of aortocoronary bypass graft
CPT/HCPCS: 36415; 71045; 80048; 83880; 84484; 85025; 93005; 99285

== ENCOUNTER 2017-07-08 15:35 | Inpatient (IN) | payer MEDICARE, OTHER ==
[~2017-07-08] VITALS: Ht 152.4 cm; Wt 83.5 kg
[2017-07-08] MEDS ORDERED: TETANUS, DIPHTHERIA, PERTUSSIS VAC/PF 0.5ML (>7YR OLD) IM ONE (18:45)
[2017-07-08 18:58] LABS: BASOPHILS % 0.7 % (0.0-2.0); EOSINOPHILS % 1.3 % (0.0-5.0); HEMATOCRIT. 38.5 % (36.0-48.0); LYMPHOCYTES % 18.6 % (20.0-50.0); MEAN CORPUSCULAR HEMOGLOBIN 26.8 pg (28.0-32.0); MEAN CORPUSCULAR VOLUME 85.7 fL (81.0-99.0); MEAN PLATELET VOLUME 9.7 fl (7.4-10.4); MONOCYTES % 7.1 % (2.0-8.0); NEUTROPHILS % 72.3 % (40.0-76.0); PLATELET 316 x1000/uL (130-400); RED BLOOD CELL COUNT 4.49 mill/uL (4.2-5.4); RED CELL DISTRIBUTION WIDTH 16.9 % (11.6-14.6)
[2017-07-08] MEDS ORDERED: HYDROCODONE/ACETAMINOPHEN 5/325MG TABLET PO ONE (19:00)
[2017-07-08 19:08] LABS: CHLORIDE 108 mEq/L (98-107)
[2017-07-08] MEDS ORDERED: MORPHINE SULFATE 4 MG/ML CPJ (NOT FOR IM USE) IV ONE ×3 (19:30→22:30)
[2017-07-08] MEDS ORDERED: LABETALOL HCL 20MG/4ML CARPUJECT IV ONE ×2 (19:30→22:30)
[2017-07-08] MEDS ORDERED: LABETALOL 5MG/ML SYR 20 MG/4 ML SYRINGE IV NR (20:30)
[2017-07-09 01:30] VITALS: BP 146/71
[2017-07-09 01:49] VITALS: BP 146/71
[2017-07-09] MEDS ORDERED: COR3 PO (02:11)
[2017-07-09 04:00] VITALS: BP 114/69
[2017-07-09] MEDS ORDERED: ZOLPIDEM TARTRATE 5MG TABLET PO PRN (05:00)
[2017-07-09] MEDS ORDERED: DEXTROSE 50% WATER 50ML SYRINGE IV PRN (05:00)
[2017-07-09] MEDS ORDERED: INSULIN DETEMIR U SQ SCH (05:45)
[2017-07-09] MEDS: LEVOTHYROXINE SODIUM 25MCG TABLET PO SCH (05:51)
[2017-07-09] MEDS: PANTOPRAZOLE 40MG DR TABLET PO SCH (05:51)
[2017-07-09] MEDS: BLOOD SUGAR DIAGNOSTIC STRIP TEST SCH ×4 (05:54→21:23)
[2017-07-09] MEDS: INSULIN LISPRO 100 UNITS/ML SUBCUT SCH ×4 (06:53→21:23)
[2017-07-09] MEDS: MORPHINE SULFATE 4 MG/ML CPJ (NOT FOR IM USE) IV PRN ×2 (08:22→21:28)
[2017-07-09] MEDS: CLOPIDOGREL 75MG TABLET PO SCH (08:37)
[2017-07-09] MEDS: DILTIAZEM HCL 180MG CAPSULE CD 24HR PO SCH (08:39)
[2017-07-09] MEDS: FUROSEMIDE 40MG TABLET PO SCH (08:41)
[2017-07-09] MEDS: GABAPENTIN 300MG CAPSULE PO SCH ×2 (08:41→17:26)
[2017-07-09] MEDS: LOSARTAN POTASSIUM 100 MG TABLET PO SCH (08:41)
[2017-07-09] MEDS: APIXABAN 2.5 MG TABLET PO SCH ×2 (08:45→17:26)
[2017-07-09] MEDS: INSULIN GLARGINE UD 100 UNITS/ML SYR SUBCUT SCH ×2 (09:56→22:35)
[2017-07-09 12:00] VITALS: BP 141/65
[2017-07-09 16:00] VITALS: BP 117/56
[2017-07-09] MEDS: LIDOCAINE 5% PATCH TOP SCH (21:15)
[2017-07-09 21:36] VITALS: BP 113/56
[2017-07-10] VITALS: BP 127/51
[2017-07-10 04:00] VITALS: BP 123/51
[2017-07-10] MEDS: MORPHINE SULFATE 4 MG/ML CPJ (NOT FOR IM USE) IV PRN (04:46)
[2017-07-10] MEDS: PANTOPRAZOLE 40MG DR TABLET PO SCH (07:00)
[2017-07-10] MEDS: LEVOTHYROXINE SODIUM 25MCG TABLET PO SCH (07:00)
[2017-07-10] MEDS: BLOOD SUGAR DIAGNOSTIC STRIP TEST SCH ×4 (07:01→20:46)
[2017-07-10] MEDS: INSULIN LISPRO 100 UNITS/ML SUBCUT SCH ×4 (07:02→20:46)
[2017-07-10 08:00] VITALS: BP 137/59
[2017-07-10] MEDS: CLOPIDOGREL 75MG TABLET PO SCH (08:37)
[2017-07-10] MEDS: LOSARTAN POTASSIUM 100 MG TABLET PO SCH (08:37)
[2017-07-10] MEDS: GABAPENTIN 300MG CAPSULE PO SCH ×2 (08:37→18:10)
[2017-07-10] MEDS: APIXABAN 2.5 MG TABLET PO SCH (08:37)
[2017-07-10] MEDS: DILTIAZEM HCL 180MG CAPSULE CD 24HR PO SCH (08:38)
[2017-07-10] MEDS: CARVEDILOL 3.125 MG TABLET PO SCH ×2 (08:38→20:46)
[2017-07-10] MEDS: FUROSEMIDE 40MG TABLET PO SCH (08:45)
[2017-07-10] MEDS ORDERED: CARVEDILOL 12.5MG TABLET PO SCH ×2 (09:00)
[2017-07-10] MEDS ORDERED: HYDROCODONE/ACETAMINOPHEN 10/325MG TABLET PO PRN (09:30)
[2017-07-10 12:00] VITALS: BP 103/46
[2017-07-10] MEDS: INSULIN GLARGINE UD 100 UNITS/ML SYR SUBCUT SCH ×2 (12:28→21:48)
[2017-07-10 16:00] VITALS: BP 115/51
[2017-07-10] MEDS: DIGOXIN 125MCG TABLET PO SCH (18:12)
[2017-07-10 20:00] VITALS: BP 108/43
[2017-07-10] MEDS: LIDOCAINE 5% PATCH TOP SCH (20:47)
[2017-07-11] VITALS: BP 110/56
[2017-07-11 04:00] VITALS: BP 129/51
[2017-07-11] MEDS: BLOOD SUGAR DIAGNOSTIC STRIP TEST SCH ×4 (06:16→21:04)
[2017-07-11] MEDS: PANTOPRAZOLE 40MG DR TABLET PO SCH (06:16)
[2017-07-11] MEDS: LEVOTHYROXINE SODIUM 25MCG TABLET PO SCH (06:16)
[2017-07-11] MEDS: INSULIN LISPRO 100 UNITS/ML SUBCUT SCH ×4 (06:54→21:34)
[2017-07-11 06:59] LABS: HEMATOCRIT. 33.3 % (36.0-48.0); HEMOGLOBIN. 10.4 g/dL (12.0-16.0); MEAN CORPUSCULAR HEMOGLOBIN 26.8 pg (28.0-32.0); MEAN CORPUSCULAR VOLUME 86.2 fL (81.0-99.0); MEAN PLATELET VOLUME 10.3 fl (7.4-10.4); PLATELET 270 x1000/uL (130-400); RED BLOOD CELL COUNT 3.87 mill/uL (4.2-5.4); RED CELL DISTRIBUTION WIDTH 17.4 % (11.6-14.6)
[2017-07-11 07:07] LABS: PROTHROMBIN TIME 10.8 sec (9.4-11.6)
[2017-07-11 07:39] LABS: CHLORIDE 107 mEq/L (98-107)
[2017-07-11 08:00] VITALS: BP 91/58
[2017-07-11] MEDS: CARVEDILOL 3.125 MG TABLET PO SCH ×2 (09:20→21:05)
[2017-07-11] MEDS: LOSARTAN POTASSIUM 100 MG TABLET PO SCH (09:20)
[2017-07-11] MEDS: FUROSEMIDE 40MG TABLET PO SCH (09:20)
[2017-07-11] MEDS: GABAPENTIN 300MG CAPSULE PO SCH ×2 (09:20→16:58)
[2017-07-11] MEDS: DILTIAZEM HCL 180MG CAPSULE CD 24HR PO SCH (09:21)
[2017-07-11] MEDS: INSULIN GLARGINE UD 100 UNITS/ML SYR SUBCUT SCH ×2 (10:43→21:34)
[2017-07-11 12:00] VITALS: BP 92/59
[2017-07-11] MEDS: ACETAMINOPHEN 325MG TABLET PO PRN (13:33)
[2017-07-11 14:00] LABS: PLATELET ESTIMATE NORMAL
[2017-07-11 16:13] VITALS: BP 120/54
[2017-07-11] MEDS: DIGOXIN 125MCG TABLET PO SCH (18:06)
[2017-07-11 20:00] VITALS: BP 114/48
[2017-07-11] MEDS: LIDOCAINE 5% PATCH TOP SCH (21:08)
[2017-07-12] VITALS (8 sets, daily range): BP systolic 110–150; BP diastolic 41–66
[2017-07-12] MEDS: LEVOTHYROXINE SODIUM 25MCG TABLET PO SCH (05:55)
[2017-07-12 06:47] LABS: BASOPHILS % 0.3 % (0.0-2.0); EOSINOPHILS % 2.1 % (0.0-5.0); HEMATOCRIT. 32.5 % (36.0-48.0); HEMOGLOBIN. 10.1 g/dL (12.0-16.0); LYMPHOCYTES % 18.9 % (20.0-50.0); MEAN CORPUSCULAR HEMOGLOBIN 26.3 pg (28.0-32.0); MEAN CORPUSCULAR VOLUME 84.9 fL (81.0-99.0); MEAN PLATELET VOLUME 9.7 fl (7.4-10.4); MONOCYTES % 11.8 % (2.0-8.0); NEUTROPHILS % 66.9 % (40.0-76.0); PLATELET 265 x1000/uL (130-400); RED BLOOD CELL COUNT 3.83 mill/uL (4.2-5.4); RED CELL DISTRIBUTION WIDTH 16.9 % (11.6-14.6)
[2017-07-12] MEDS: BLOOD SUGAR DIAGNOSTIC STRIP TEST SCH ×4 (06:58→21:17)
[2017-07-12] MEDS: INSULIN LISPRO 100 UNITS/ML SUBCUT SCH ×4 (06:58→21:00)
[2017-07-12] MEDS: FAMOTIDINE 20MG TABLET PO SCH (08:51)
[2017-07-12] MEDS: DILTIAZEM HCL 180MG CAPSULE CD 24HR PO SCH (08:52)
[2017-07-12] MEDS: CARVEDILOL 3.125 MG TABLET PO SCH ×2 (08:52→21:24)
[2017-07-12] MEDS: GABAPENTIN 300MG CAPSULE PO SCH ×2 (08:53→17:41)
[2017-07-12] MEDS: ACETAMINOPHEN 325MG TABLET PO PRN (09:01)
[2017-07-12] MEDS: LOSARTAN POTASSIUM 100 MG TABLET PO SCH (09:25)
[2017-07-12] MEDS ORDERED: MORPHINE SULFATE 4 MG/ML CPJ (NOT FOR IM USE) IV PRN (10:30)
[2017-07-12] MEDS ORDERED: HYDROCODONE/ACETAMINOPHEN 5/325MG TABLET PO NR (10:30)
[2017-07-12] MEDS: INSULIN GLARGINE UD 100 UNITS/ML SYR SUBCUT SCH ×2 (10:54→22:23)
[2017-07-12] MEDS: DIGOXIN 125MCG TABLET PO SCH (17:41)
[2017-07-12] MEDS: LIDOCAINE 5% PATCH TOP SCH (21:24)
[2017-07-13] VITALS: BP 112/52
[2017-07-13] MEDS: HYDROCODONE/ACETAMINOPHEN 5/325MG TABLET PO PRN ×3 (01:13→20:59)
[2017-07-13 04:00] VITALS: BP 139/59
[2017-07-13] MEDS: BLOOD SUGAR DIAGNOSTIC STRIP TEST SCH ×4 (06:19→20:36)
[2017-07-13] MEDS: INSULIN LISPRO 100 UNITS/ML SUBCUT SCH ×4 (06:20→20:57)
[2017-07-13] MEDS: LEVOTHYROXINE SODIUM 25MCG TABLET PO SCH (06:23)
[2017-07-13 07:16] LABS: BASOPHILS % 0.5 % (0.0-2.0); EOSINOPHILS % 3.3 % (0.0-5.0); HEMATOCRIT. 33.1 % (36.0-48.0); HEMOGLOBIN. 10.3 g/dL (12.0-16.0); LYMPHOCYTES % 23.7 % (20.0-50.0); MEAN CORPUSCULAR HEMOGLOBIN 26.4 pg (28.0-32.0); MEAN CORPUSCULAR VOLUME 84.8 fL (81.0-99.0); MEAN PLATELET VOLUME 10.3 fl (7.4-10.4); MONOCYTES % 12.4 % (2.0-8.0); NEUTROPHILS % 60.1 % (40.0-76.0); PLATELET 278 x1000/uL (130-400); RED CELL DISTRIBUTION WIDTH 17.2 % (11.6-14.6)
[2017-07-13 08:00] VITALS: BP 152/60
[2017-07-13] MEDS: DILTIAZEM HCL 180MG CAPSULE CD 24HR PO SCH (09:23)
[2017-07-13] MEDS: FAMOTIDINE 20MG TABLET PO SCH (09:23)
[2017-07-13] MEDS: GABAPENTIN 300MG CAPSULE PO SCH ×2 (09:23→18:12)
[2017-07-13] MEDS: LOSARTAN POTASSIUM 100 MG TABLET PO SCH (09:24)
[2017-07-13] MEDS: CARVEDILOL 3.125 MG TABLET PO SCH ×2 (09:24→20:58)
[2017-07-13] MEDS: INSULIN GLARGINE UD 100 UNITS/ML SYR SUBCUT SCH ×2 (10:31→21:01)
[2017-07-13 12:00] VITALS: BP 166/70
[2017-07-13] MEDS: CLOPIDOGREL 75MG TABLET PO SCH (12:10)
[2017-07-13] MEDS: CLONIDINE 0.1MG TABLET PO PRN (12:10)
[2017-07-13] MEDS: ASPIRIN 81MG TABLET PO SCH (12:10)
[2017-07-13 16:00] VITALS: BP 122/54
[2017-07-13] MEDS: DIGOXIN 125MCG TABLET PO SCH (18:12)
[2017-07-13] MEDS: APIXABAN 2.5 MG TABLET PO SCH (18:12)
[2017-07-13 20:00] VITALS: BP 105/60
[2017-07-13] MEDS: LIDOCAINE 5% PATCH TOP SCH (21:00)
[2017-07-14] VITALS: BP 136/63
[2017-07-14 04:00] VITALS: BP 169/69
[2017-07-14] MEDS: BLOOD SUGAR DIAGNOSTIC STRIP TEST SCH ×4 (06:47→21:58)
[2017-07-14] MEDS: INSULIN LISPRO 100 UNITS/ML SUBCUT SCH ×4 (06:54→21:00)
[2017-07-14] MEDS: LEVOTHYROXINE SODIUM 25MCG TABLET PO SCH (06:54)
[2017-07-14 08:43] VITALS: BP 166/69
[2017-07-14] MEDS: HYDROCODONE/ACETAMINOPHEN 5/325MG TABLET PO PRN ×3 (08:46→23:24)
[2017-07-14] MEDS: FAMOTIDINE 20MG TABLET PO SCH (08:47)
[2017-07-14] MEDS: ASPIRIN 81MG TABLET PO SCH (08:47)
[2017-07-14] MEDS: APIXABAN 2.5 MG TABLET PO SCH ×2 (08:47→17:47)
[2017-07-14] MEDS: CLOPIDOGREL 75MG TABLET PO SCH (08:47)
[2017-07-14] MEDS: CARVEDILOL 3.125 MG TABLET PO SCH (08:47)
[2017-07-14] MEDS: DILTIAZEM HCL 180MG CAPSULE CD 24HR PO SCH (08:47)
[2017-07-14] MEDS: LOSARTAN POTASSIUM 100 MG TABLET PO SCH (08:47)
[2017-07-14] MEDS: GABAPENTIN 300MG CAPSULE PO SCH ×2 (08:47→17:46)
[2017-07-14] MEDS: INSULIN GLARGINE UD 100 UNITS/ML SYR SUBCUT SCH ×2 (09:56→21:51)
[2017-07-14] MEDS: CLONIDINE 0.1MG TABLET PO PRN (12:20)
[2017-07-14 16:00] VITALS: BP 174/54
[2017-07-14] MEDS: CLONIDINE 0.2MG TABLET PO SCH (17:47)
[2017-07-14] MEDS: DIGOXIN 125MCG TABLET PO SCH (17:47)
[2017-07-14 20:00] VITALS: BP 116/55
[2017-07-14] MEDS: CARVEDILOL 6.25 MG TABLET PO SCH (21:47)
[2017-07-14] MEDS: LIDOCAINE 5% PATCH TOP SCH (21:48)
[2017-07-15] VITALS: BP 101/45
[2017-07-15 04:00] VITALS: BP 135/61
[2017-07-15] MEDS: INSULIN LISPRO 100 UNITS/ML SUBCUT SCH ×3 (05:58→17:15)
[2017-07-15] MEDS: BLOOD SUGAR DIAGNOSTIC STRIP TEST SCH ×3 (05:59→17:37)
[2017-07-15] MEDS: LEVOTHYROXINE SODIUM 25MCG TABLET PO SCH (05:59)
[2017-07-15 08:00] VITALS: BP 159/70
[2017-07-15] MEDS: ASPIRIN 81MG TABLET PO SCH (09:00)
[2017-07-15] MEDS: FAMOTIDINE 20MG TABLET PO SCH (09:54)
[2017-07-15] MEDS: CLONIDINE 0.2MG TABLET PO SCH ×2 (09:55→17:37)
[2017-07-15] MEDS: GABAPENTIN 300MG CAPSULE PO SCH ×2 (09:55→17:36)
[2017-07-15] MEDS: LOSARTAN POTASSIUM 100 MG TABLET PO SCH (09:56)
[2017-07-15] MEDS: CLOPIDOGREL 75MG TABLET PO SCH (09:56)
[2017-07-15] MEDS: APIXABAN 2.5 MG TABLET PO SCH ×2 (09:57→17:36)
[2017-07-15] MEDS: CARVEDILOL 6.25 MG TABLET PO SCH (09:57)
[2017-07-15] MEDS: DILTIAZEM HCL 180MG CAPSULE CD 24HR PO SCH (09:59)
[2017-07-15] MEDS: HYDROCODONE/ACETAMINOPHEN 5/325MG TABLET PO PRN (09:59)
[2017-07-15] MEDS: INSULIN GLARGINE UD 100 UNITS/ML SYR SUBCUT SCH (10:16)
[2017-07-15 12:00] VITALS: BP 109/56
[2017-07-15 16:00] VITALS: BP 124/57
[2017-07-15] MEDS: DIGOXIN 125MCG TABLET PO SCH (17:36)
[2017-07-15 19:39] VITALS: BP 124/57
== END 2017-07-15 20:30 | DRG 553 ==
LOC: ER 18:08 → 5WST 22:19 → ENRESERV 22:28 → 5WST 07-09 02:07
PROVIDERS: ADMIT Internal Medicine; ATTEND Internal Medicine
DX: M25.062 Hemarthrosis, left knee (principal); E43 Unspecified severe protein-calorie malnutrition; N17.9 Acute kidney failure, unspecified; E11.22 Type 2 diabetes mellitus with diabetic chronic kidney disease; I48.1 Persistent atrial fibrillation; I42.9 Cardiomyopathy, unspecified; I13.0 Hypertensive heart and chronic kidney disease with heart failure and stage 1 through stage 4 chronic kidney disease, or unspecified chronic kidney disease; I50.9 Heart failure, unspecified; E86.0 Dehydration; M25.462 Effusion, left knee; S80.02XA Contusion of left knee, initial encounter; W18.30XA Fall on same level, unspecified, initial encounter; E03.9 Hypothyroidism, unspecified; E78.00 Pure hypercholesterolemia, unspecified; E78.5 Hyperlipidemia, unspecified; G47.33 Obstructive sleep apnea (adult) (pediatric); I25.10 Atherosclerotic heart disease of native coronary artery without angina pectoris; I25.2 Old myocardial infarction; I25.5 Ischemic cardiomyopathy; I49.5 Sick sinus syndrome; M17.12 Unilateral primary osteoarthritis, left knee; M50.30 Other cervical disc degeneration, unspecified cervical region; N18.9 Chronic kidney disease, unspecified; K57.90 Diverticulosis of intestine, part unspecified, without perforation or abscess without bleeding; S01.81XA Laceration without foreign body of other part of head, initial encounter; S80.01XA Contusion of right knee, initial encounter; Y93.01 Activity, walking, marching and hiking; Z79.4 Long term (current) use of insulin; Z87.11 Personal history of peptic ulcer disease; Z95.0 Presence of cardiac pacemaker; Z95.1 Presence of aortocoronary bypass graft; Z95.5 Presence of coronary angioplasty implant and graft; Z98.84 Bariatric surgery status; Y92.89 Other specified places as the place of occurrence of the external cause; Y99.8 Other external cause status; Z88.8 Allergy status to other drugs, medicaments and biological substances; Z88.2 Allergy status to sulfonamides; Z79.899 Other long term (current) drug therapy
CPT/HCPCS: 36415; 70450; 72125; 73562; 73700; 80048; 80053; 80162; 82962; 85025; 85610; 85730; 90471; 90715; 92523; 93005; 96374; 96375; 96376; 97116; 97162; 97166; 97530; 99285; J1815; J2270; J3490; L1830

== ENCOUNTER 2018-05-15 18:28 | Inpatient (IN) | payer MEDICARE, MEDICAID, OTHER ==
[~2018-05-15] VITALS: Ht 153.7 cm; Wt 69.9 kg
[~2018-05-15 18:28] MED LIST changes: +COR3 PO; +DILT180C66 PO; -DILT180C69 PO; +METO200T48 PO; -METO200T5 PO
[2018-05-15 20:14] LABS: BASOPHILS % 0.7 % (0.0-2.0); EOSINOPHILS % 0.6 % (0.0-5.0); HEMOGLOBIN. 9.2 g/dL (12.0-16.0); LYMPHOCYTES % 19.2 % (20.0-50.0); MEAN CORPUSCULAR HEMOGLOBIN 29.1 pg (28.0-32.0); MEAN CORPUSCULAR VOLUME 88.9 fL (81.0-99.0); MEAN PLATELET VOLUME 10.4 fl (7.4-10.4); MONOCYTES % 4.7 % (2.0-8.0); NEUTROPHILS % 74.8 % (40.0-76.0); PLATELET 395 x1000/uL (130-400); RED BLOOD CELL COUNT 3.15 mill/uL (4.2-5.4); RED CELL DISTRIBUTION WIDTH 16.2 % (11.6-14.6)
[2018-05-15 20:17] LABS: CHLORIDE 101 mEq/L (98-107)
[2018-05-15 20:18] LABS: INR 1.1; PROTHROMBIN TIME 10.7 sec (9.1-11.1)
[2018-05-15] MEDS ORDERED: PHYTONADIONE 10 MG in DEXTROSE 5% WATER 50 ML IV ONE (21:00)
[2018-05-15] MEDS ORDERED: SODIUM CHLORIDE 0.9% 500 ML IV ONE (21:15)
[2018-05-15] MEDS ORDERED: INSULIN REGULAR (HUMULIN R) 300UNITS/3ML IV ONE (21:15)
[2018-05-15] MEDS ORDERED: ONDANSETRON HCL 4MG/2ML INJ IV PRN (23:00)
[2018-05-15] MEDS ORDERED: LORAZEPAM 2MG/ML CPJ IV PRN (23:00)
[2018-05-15] MEDS ORDERED: CLONIDINE 0.1MG TABLET PO PRN (23:00)
[2018-05-16 02:50] VITALS: BP 153/64
[2018-05-16] MEDS ORDERED: DEXTROSE 50% WATER 50ML SYRINGE IV PRN (03:45)
[2018-05-16 04:00] VITALS: BP 170/75
[2018-05-16] MEDS ORDERED: DEXT 5%/0.45% NACL 1000ML 1,000 ML IV SCH (04:00)
[2018-05-16] MEDS ORDERED: MAGNESIUM/ALUMINUM HYDROXIDE/SIMETHICONE 30ML UDC PO PRN (04:02)
[2018-05-16] MEDS: HYDROMORPHONE HCL/PF 2MG/ML CPJ IV PRN ×3 (04:48→22:03)
[2018-05-16] MEDS: BLOOD SUGAR DIAGNOSTIC STRIP TEST SCH ×4 (06:10→20:40)
[2018-05-16] MEDS: INSULIN LISPRO 100 UNITS/ML SUBCUT SCH ×4 (06:16→20:41)
[2018-05-16] MEDS: DIGOXIN 125MCG TABLET PO SCH (09:00)
[2018-05-16] MEDS: CARVEDILOL 3.125 MG TABLET PO SCH ×2 (09:00→20:35)
[2018-05-16] MEDS: PANTOPRAZOLE SODIUM 40 MG/VIAL IV SCH ×2 (09:00→20:35)
[2018-05-16] MEDS: DILTIAZEM HCL 180MG CAPSULE CD 24HR PO SCH (09:00)
[2018-05-16] MEDS ORDERED: INSULIN GLARGINE UD 100 UNITS/ML SYR SUBCUT SCH (10:00)
[2018-05-16 12:00] VITALS: BP 113/49
[2018-05-16] MEDS ORDERED: SIMETHICONE 40 MG/0.6 ML 30ML ONE (13:08)
[2018-05-16] MEDS ORDERED: MIDAZOLAM HCL 5 MG/5 ML VIAL ONE (13:08)
[2018-05-16] MEDS ORDERED: FENTANYL CITRATE/PF 50MCG/ML 2ML VIAL ONE (13:09)
[2018-05-16] MEDS ORDERED: MIDAZOLAM HCL 5 MG/5 ML VIAL IV PRN (13:09)
[2018-05-16 16:00] VITALS: BP 134/57
[2018-05-16] MEDS ORDERED: DILTIAZEM HCL 5MG/ML 5ML VIAL IV PRN (17:00)
[2018-05-16 20:00] VITALS: BP 132/67
[2018-05-16 21:06] LABS: BASOPHILS % 0.6 % (0.0-2.0); EOSINOPHILS % 2.8 % (0.0-5.0); HEMATOCRIT. 22.4 % (36.0-48.0); HEMOGLOBIN. 7.3 g/dL (12.0-16.0); LYMPHOCYTES % 22.2 % (20.0-50.0); MEAN CORPUSCULAR HEMOGLOBIN 28.8 pg (28.0-32.0); MEAN CORPUSCULAR VOLUME 88.4 fL (81.0-99.0); MEAN PLATELET VOLUME 9.7 fl (7.4-10.4); MONOCYTES % 6.2 % (2.0-8.0); NEUTROPHILS % 68.2 % (40.0-76.0); PLATELET 324 x1000/uL (130-400); RED BLOOD CELL COUNT 2.53 mill/uL (4.2-5.4); RED CELL DISTRIBUTION WIDTH 16.3 % (11.6-14.6)
[2018-05-16 21:09] LABS: CHLORIDE 109 mEq/L (98-107)
[2018-05-16 21:14] LABS: PHOSPHORUS 4.1 mg/dL (2.5-4.9)
[2018-05-16 21:17] LABS: CREATINE KINASE 115 IU/L (26-192)
[2018-05-16 21:19] LABS: TOTAL IRON BINDING CAPACITY 258 ug/dL (250-450)
[2018-05-16 21:20] LABS: CREATINE KINASE MB FRACTION 11.6 ng/mL (0.5-3.6)
[2018-05-16] MEDS: INSULIN GLARGINE UD 100 UNITS/ML SYR SUBCUT SCH (21:56)
[2018-05-17] VITALS (12 sets, daily range): BP systolic 100–170; BP diastolic 52–77
[2018-05-17 00:41] LABS: CHLORIDE 110 mEq/L (98-107)
[2018-05-17 01:50] LABS: HEMATOCRIT 21.3 % (36.0-48.0)
[2018-05-17 02:03] LABS: HEMOGLOBIN 6.9 g/dL (12.0-16.0)
[2018-05-17] MEDS: BLOOD SUGAR DIAGNOSTIC STRIP TEST SCH ×4 (06:12→20:17)
[2018-05-17] MEDS: INSULIN LISPRO 100 UNITS/ML SUBCUT SCH ×4 (06:12→20:17)
[2018-05-17 08:07] LABS: BASOPHILS % 0.7 % (0.0-2.0); EOSINOPHILS % 2.6 % (0.0-5.0); MEAN CORPUSCULAR HEMOGLOBIN 29.3 pg (28.0-32.0); MEAN CORPUSCULAR VOLUME 88.2 fL (81.0-99.0); MEAN PLATELET VOLUME 9.4 fl (7.4-10.4); NEUTROPHILS % 67.7 % (40.0-76.0); PLATELET 310 x1000/uL (130-400); RED CELL DISTRIBUTION WIDTH 16.6 % (11.6-14.6)
[2018-05-17 08:26] LABS: HEMATOCRIT. 21.7 % (36.0-48.0)
[2018-05-17 08:27] LABS: CHLORIDE 110 mEq/L (98-107)
[2018-05-17 08:49] LABS: DIGOXIN 0.3 ng/mL (0.9-2.0)
[2018-05-17] MEDS: CARVEDILOL 3.125 MG TABLET PO SCH ×2 (09:00→20:08)
[2018-05-17] MEDS: DILTIAZEM HCL 180MG CAPSULE CD 24HR PO SCH (09:00)
[2018-05-17] MEDS: PANTOPRAZOLE SODIUM 40 MG/VIAL IV SCH ×2 (09:00→20:08)
[2018-05-17] MEDS ORDERED: NITROGLYCERIN 0.4MG TABLET SL SL PRN (09:03)
[2018-05-17] MEDS: DIGOXIN 125MCG TABLET PO SCH (09:10)
[2018-05-17] MEDS: INSULIN GLARGINE UD 100 UNITS/ML SYR SUBCUT SCH ×2 (10:10→21:52)
[2018-05-17] MEDS: HYDROMORPHONE HCL/PF 2MG/ML CPJ IV PRN ×3 (10:27→20:09)
[2018-05-17] MEDS ORDERED: SODIUM CHLORIDE 0.9% 10ML VIAL ONE (15:57)
[2018-05-17 17:39] LABS: HEMATOCRIT 26.4 % (36.0-48.0); HEMOGLOBIN 8.7 g/dL (12.0-16.0); MEAN CORPUSCULAR HEMOGLOBIN 29.1 pg (28.0-32.0); MEAN CORPUSCULAR VOLUME 88.5 fL (81.0-99.0); PLATELET 325 x1000/uL (130-400); RED BLOOD CELL COUNT 2.99 mill/uL (4.2-5.4); RED CELL DISTRIBUTION WIDTH 16.4 % (11.6-14.6)
[2018-05-18] VITALS: BP 148/52
[2018-05-18 00:20] LABS: HEMATOCRIT 24.9 % (36.0-48.0); HEMOGLOBIN 8.4 g/dL (12.0-16.0)
[2018-05-18 04:00] VITALS: BP 142/74
[2018-05-18] MEDS: INSULIN LISPRO 100 UNITS/ML SUBCUT SCH ×4 (06:02→21:00)
[2018-05-18] MEDS: BLOOD SUGAR DIAGNOSTIC STRIP TEST SCH ×4 (06:02→21:02)
[2018-05-18] MEDS: HYDROMORPHONE HCL/PF 2MG/ML CPJ IV PRN ×4 (06:25→19:55)
[2018-05-18 07:50] LABS: BASOPHILS % 0.7 % (0.0-2.0); EOSINOPHILS % 2.6 % (0.0-5.0); HEMATOCRIT. 26.1 % (36.0-48.0); HEMOGLOBIN. 8.6 g/dL (12.0-16.0); LYMPHOCYTES % 21.9 % (20.0-50.0); MEAN CORPUSCULAR HEMOGLOBIN 29.4 pg (28.0-32.0); MEAN CORPUSCULAR VOLUME 88.9 fL (81.0-99.0); MEAN PLATELET VOLUME 9.5 fl (7.4-10.4); MONOCYTES % 10.6 % (2.0-8.0); NEUTROPHILS % 64.2 % (40.0-76.0); PLATELET 270 x1000/uL (130-400); RED BLOOD CELL COUNT 2.93 mill/uL (4.2-5.4); RED CELL DISTRIBUTION WIDTH 16.8 % (11.6-14.6)
[2018-05-18 08:00] VITALS: BP 152/52
[2018-05-18 08:08] LABS: CHLORIDE 110 mEq/L (98-107)
[2018-05-18] MEDS: DIGOXIN 125MCG TABLET PO SCH (09:19)
[2018-05-18] MEDS: CARVEDILOL 3.125 MG TABLET PO SCH (09:19)
[2018-05-18] MEDS: DILTIAZEM HCL 180MG CAPSULE CD 24HR PO SCH (09:19)
[2018-05-18] MEDS: PANTOPRAZOLE SODIUM 40 MG/VIAL IV SCH ×2 (09:19→21:01)
[2018-05-18] MEDS: INSULIN GLARGINE UD 100 UNITS/ML SYR SUBCUT SCH ×2 (10:21→22:00)
[2018-05-18 12:00] VITALS: BP 135/57
[2018-05-18] MEDS: LOSARTAN POTASSIUM 100 MG TABLET PO SCH (12:49)
[2018-05-18 16:00] VITALS: BP 124/32
[2018-05-18] MEDS: CARVEDILOL 6.25 MG TABLET PO SCH (21:02)
[2018-05-19] VITALS: BP 124/42
[2018-05-19 04:00] VITALS: BP 120/45
[2018-05-19 07:22] LABS: BASOPHILS % 0.4 % (0.0-2.0); EOSINOPHILS % 2.5 % (0.0-5.0); HEMATOCRIT. 25.3 % (36.0-48.0); HEMOGLOBIN. 8.5 g/dL (12.0-16.0); LYMPHOCYTES % 22.1 % (20.0-50.0); MEAN CORPUSCULAR HEMOGLOBIN 29.8 pg (28.0-32.0); MEAN CORPUSCULAR VOLUME 88.7 fL (81.0-99.0); MEAN PLATELET VOLUME 9.7 fl (7.4-10.4); MONOCYTES % 11.9 % (2.0-8.0); NEUTROPHILS % 63.1 % (40.0-76.0); PLATELET 262 x1000/uL (130-400); RED BLOOD CELL COUNT 2.85 mill/uL (4.2-5.4); RED CELL DISTRIBUTION WIDTH 16.3 % (11.6-14.6)
[2018-05-19] MEDS: INSULIN LISPRO 100 UNITS/ML SUBCUT SCH ×4 (07:40→21:00)
[2018-05-19 08:05] VITALS: BP 124/45
[2018-05-19] MEDS: DIGOXIN 125MCG TABLET PO SCH (08:34)
[2018-05-19] MEDS: PANTOPRAZOLE SODIUM 40 MG/VIAL IV SCH ×2 (08:34→21:26)
[2018-05-19] MEDS: DILTIAZEM HCL 180MG CAPSULE CD 24HR PO SCH (08:34)
[2018-05-19] MEDS: CARVEDILOL 6.25 MG TABLET PO SCH ×2 (08:35→21:26)
[2018-05-19] MEDS: LOSARTAN POTASSIUM 100 MG TABLET PO SCH (08:35)
[2018-05-19] MEDS: INSULIN GLARGINE UD 100 UNITS/ML SYR SUBCUT SCH ×2 (10:00→22:29)
[2018-05-19 12:00] VITALS: BP 96/39
[2018-05-19] MEDS: BLOOD SUGAR DIAGNOSTIC STRIP TEST SCH ×3 (12:22→21:26)
[2018-05-19] MEDS: ACETAMINOPHEN 325MG TABLET PO PRN (12:22)
[2018-05-19 16:00] VITALS: BP 112/41
[2018-05-19 20:00] VITALS: BP 107/51
[2018-05-20] VITALS: BP 134/54
[2018-05-20] MEDS: ACETAMINOPHEN 325MG TABLET PO PRN ×2 (00:38→16:33)
[2018-05-20] MEDS: HYDROMORPHONE HCL/PF 2MG/ML CPJ IV PRN (02:53)
[2018-05-20 03:53] VITALS: BP 119/45
[2018-05-20] MEDS: BLOOD SUGAR DIAGNOSTIC STRIP TEST SCH ×3 (06:12→17:10)
[2018-05-20] MEDS: INSULIN LISPRO 100 UNITS/ML SUBCUT SCH ×2 (06:12→12:14)
[2018-05-20 08:00] VITALS: BP 131/52
[2018-05-20 08:08] LABS: BASOPHILS % 0.7 % (0.0-2.0); EOSINOPHILS % 2.5 % (0.0-5.0); HEMATOCRIT. 24.8 % (36.0-48.0); HEMOGLOBIN. 8.2 g/dL (12.0-16.0); LYMPHOCYTES % 25.7 % (20.0-50.0); MEAN CORPUSCULAR HEMOGLOBIN 29.8 pg (28.0-32.0); MEAN CORPUSCULAR VOLUME 90.2 fL (81.0-99.0); MEAN PLATELET VOLUME 10.2 fl (7.4-10.4); NEUTROPHILS % 59.1 % (40.0-76.0); PLATELET 289 x1000/uL (130-400); RED BLOOD CELL COUNT 2.75 mill/uL (4.2-5.4); RED CELL DISTRIBUTION WIDTH 16.6 % (11.6-14.6)
[2018-05-20] MEDS: FERROUS SULFATE 325MG TABLET PO SCH ×2 (09:20→12:15)
[2018-05-20] MEDS: DILTIAZEM HCL 180MG CAPSULE CD 24HR PO SCH (09:20)
[2018-05-20] MEDS: DIGOXIN 125MCG TABLET PO SCH (09:20)
[2018-05-20] MEDS: CARVEDILOL 6.25 MG TABLET PO SCH (09:20)
[2018-05-20] MEDS: LOSARTAN POTASSIUM 100 MG TABLET PO SCH (09:20)
[2018-05-20] MEDS: PANTOPRAZOLE SODIUM 40 MG/VIAL IV SCH (09:21)
[2018-05-20] MEDS: INSULIN GLARGINE UD 100 UNITS/ML SYR SUBCUT SCH (10:02)
[2018-05-20 12:00] VITALS: BP 100/49
[2018-05-20 15:25] VITALS: BP 100/49
== END 2018-05-20 18:35 | DRG 377 ==
LOC: ER 18:28 → EDBEDREQSVC 21:22 → 8WST 21:38 → EDBEDREQ 21:40 → ENRESERV 22:44 → 8WST 05-16 03:47
PROVIDERS: ADMIT Internal Medicine Nephrology; ATTEND Internal Medicine Nephrology
PROC: 0DB68ZX Excision of Stomach, Via Natural or Artificial Opening Endoscopic, Diagnostic (ICD-10-PCS; principal; 2018-05-16)
PROC: 30233N1 Transfusion of Nonautologous Red Blood Cells into Peripheral Vein, Percutaneous Approach (ICD-10-PCS; 2018-05-17)
DX: K26.4 Chronic or unspecified duodenal ulcer with hemorrhage (principal); E43 Unspecified severe protein-calorie malnutrition; I48.1 Persistent atrial fibrillation; D68.32 Hemorrhagic disorder due to extrinsic circulating anticoagulants; K29.60 Other gastritis without bleeding; D50.0 Iron deficiency anemia secondary to blood loss (chronic); E87.5 Hyperkalemia; K44.9 Diaphragmatic hernia without obstruction or gangrene; E11.65 Type 2 diabetes mellitus with hyperglycemia; E78.5 Hyperlipidemia, unspecified; I11.9 Hypertensive heart disease without heart failure; E66.9 Obesity, unspecified; G89.29 Other chronic pain; I49.5 Sick sinus syndrome; I25.10 Atherosclerotic heart disease of native coronary artery without angina pectoris; I34.0 Nonrheumatic mitral (valve) insufficiency; T45.515A Adverse effect of anticoagulants, initial encounter; I48.2 Chronic atrial fibrillation; K57.30 Diverticulosis of large intestine without perforation or abscess without bleeding; K64.8 Other hemorrhoids; Z79.01 Long term (current) use of anticoagulants; Z79.4 Long term (current) use of insulin; Z82.49 Family history of ischemic heart disease and other diseases of the circulatory system; I25.2 Old myocardial infarction; Z87.891 Personal history of nicotine dependence; Z90.3 Acquired absence of stomach [part of]; Z91.19 Patient's noncompliance with other medical treatment and regimen; Z95.0 Presence of cardiac pacemaker; Z95.1 Presence of aortocoronary bypass graft; Z95.5 Presence of coronary angioplasty implant and graft; Z68.29 Body mass index [BMI] 29.0-29.9, adult; Z88.8 Allergy status to other drugs, medicaments and biological substances; Z88.2 Allergy status to sulfonamides; Z88.6 Allergy status to analgesic agent; Z79.899 Other long term (current) drug therapy; Z79.02 Long term (current) use of antithrombotics/antiplatelets; Y92.89 Other specified places as the place of occurrence of the external cause
CPT/HCPCS: 36415; 73502; 80048; 80162; 82270; 82550; 82553; 82728; 82962; 83540; 83550; 83605; 83735; 84100; 84484; 85014; 85018; 85027; 86850; 86900; 86920; 88305; 88312; 88313; 93005; 93306; 93970; 97116; 97162; 99285; C9113; J1170; J1815; J2250; J3010; J3430; J3490; J7040; J7050; J7060; P9016

== ENCOUNTER 2018-08-18 20:40 | Inpatient (IN) | payer MEDICARE, MEDICAID ==
[~2018-08-18] VITALS: Ht 154.9 cm; Wt 64.4 kg
[~2018-08-18 20:40] MED LIST changes: -CLOP75TA33 PO
[2018-08-19] MEDS ORDERED: IBUPROFEN 600MG TABLET PO NR (01:30)
[2018-08-19 07:00] LABS: BASOPHILS % 0.3 % (0.0-2.0); EOSINOPHILS % 2.2 % (0.0-5.0); HEMATOCRIT. 37.4 % (36.0-48.0); HEMOGLOBIN. 12.2 g/dL (12.0-16.0); MEAN CORPUSCULAR HEMOGLOBIN 28.7 pg (28.0-32.0); MEAN CORPUSCULAR VOLUME 88.2 fL (81.0-99.0); MEAN PLATELET VOLUME 11.2 fl (7.4-10.4); MONOCYTES % 9.4 % (2.0-8.0); NEUTROPHILS % 62.1 % (40.0-76.0); PLATELET 216 x1000/uL (130-400); RED BLOOD CELL COUNT 4.24 mill/uL (4.2-5.4); RED CELL DISTRIBUTION WIDTH 14.7 % (11.6-14.6)
[2018-08-19 07:03] LABS: CHLORIDE 106 mEq/L (98-107)
[2018-08-19] MEDS ORDERED: NA PHOS,M-B/NA PHOS,DI-BA ENEMA 118ML PR PRN (10:00)
[2018-08-19] MEDS ORDERED: DOCUSATE SODIUM 100MG CAPSULE PO PRN (10:00)
[2018-08-19] MEDS ORDERED: ONDANSETRON HCL 4MG/2ML INJ IV PRN (10:00)
[2018-08-19] MEDS ORDERED: CLONIDINE 0.1MG TABLET PO PRN (10:00)
[2018-08-19 10:05] VITALS: BP 115/52
[2018-08-19] MEDS ORDERED: ENOXAPARIN 30MG/0.3ML SYR SUBCUT SCH (11:00)
[2018-08-19] MEDS: SODIUM CHLORIDE 0.9% 1,000 ML IV SCH (11:27)
[2018-08-19 12:00] VITALS: BP 115/52
[2018-08-19] MEDS: FUROSEMIDE 40MG TABLET PO SCH (12:22)
[2018-08-19] MEDS: LEVOTHYROXINE SODIUM 25MCG TABLET PO SCH (12:22)
[2018-08-19 16:00] VITALS: BP 111/68
[2018-08-19] MEDS: DIGOXIN 125MCG TABLET PO SCH (17:14)
[2018-08-19] MEDS: APIXABAN 2.5 MG TABLET PO SCH (17:14)
[2018-08-19 20:00] VITALS: BP 124/62
[2018-08-19] MEDS: GABAPENTIN 300MG CAPSULE PO SCH (20:48)
[2018-08-19] MEDS: CARVEDILOL 3.125 MG TABLET PO SCH (20:51)
[2018-08-20] VITALS: BP 107/60
[2018-08-20] MEDS: SODIUM CHLORIDE 0.9% 1,000 ML IV SCH ×2 (00:20→13:41)
[2018-08-20 04:00] VITALS: BP 135/75
[2018-08-20 06:08] LABS: CHLORIDE 110 mEq/L (98-107)
[2018-08-20] MEDS: LEVOTHYROXINE SODIUM 25MCG TABLET PO SCH (06:20)
[2018-08-20 06:29] LABS: BASOPHILS % 0.5 % (0.0-2.0); EOSINOPHILS % 3.4 % (0.0-5.0); HEMATOCRIT. 39.8 % (36.0-48.0); LYMPHOCYTES % 22.7 % (20.0-50.0); MEAN CORPUSCULAR HEMOGLOBIN 29.1 pg (28.0-32.0); MEAN CORPUSCULAR VOLUME 88.8 fL (81.0-99.0); MEAN PLATELET VOLUME 10.9 fl (7.4-10.4); MONOCYTES % 8.8 % (2.0-8.0); NEUTROPHILS % 64.6 % (40.0-76.0); PLATELET 220 x1000/uL (130-400); RED BLOOD CELL COUNT 4.49 mill/uL (4.2-5.4); RED CELL DISTRIBUTION WIDTH 14.6 % (11.6-14.6)
[2018-08-20 08:00] VITALS: BP 140/65
[2018-08-20] MEDS: CARVEDILOL 3.125 MG TABLET PO SCH ×2 (09:31→20:39)
[2018-08-20] MEDS: APIXABAN 2.5 MG TABLET PO SCH ×2 (09:31→20:39)
[2018-08-20] MEDS: AMLODIPINE 10MG TABLET PO SCH (09:31)
[2018-08-20] MEDS: FUROSEMIDE 40MG TABLET PO SCH (09:31)
[2018-08-20] MEDS: GABAPENTIN 300MG CAPSULE PO SCH ×2 (09:31→20:40)
[2018-08-20] MEDS: BLOOD SUGAR DIAGNOSTIC STRIP TEST SCH ×6 (11:59→21:30)
[2018-08-20 12:00] VITALS: BP 112/60
[2018-08-20] MEDS ORDERED: DEXTROSE 50% WATER 50ML SYRINGE IV PRN (12:30)
[2018-08-20] MEDS: INSULIN LISPRO 100 UNITS/ML SUBCUT SCH ×3 (12:43→21:28)
[2018-08-20 16:00] VITALS: BP 121/65
[2018-08-20 20:00] VITALS: BP 136/59
[2018-08-20] MEDS: DIGOXIN 125MCG TABLET PO SCH (20:40)
[2018-08-20] MEDS ORDERED: LACT10SO7 MT (23:19)
[2018-08-20] MEDS ORDERED: IBUP50DR66 PO (23:19)
[2018-08-20] MEDS ORDERED: [UNRECOGNIZED DRUG - CODE] PO (23:19)
[2018-08-20] MEDS ORDERED: HYDR-4001 MT (23:19)
[2018-08-20] MEDS ORDERED: ESCI5TAB MT (23:19)
[2018-08-21] VITALS: BP 149/73
[2018-08-21] MEDS: SODIUM CHLORIDE 0.9% 1,000 ML IV SCH ×2 (03:56→16:20)
[2018-08-21 04:00] VITALS: BP 133/68
[2018-08-21 06:15] LABS: BASOPHILS % 0.5 % (0.0-2.0); EOSINOPHILS % 2.4 % (0.0-5.0); HEMATOCRIT. 39.2 % (36.0-48.0); HEMOGLOBIN. 12.7 g/dL (12.0-16.0); LYMPHOCYTES % 24.7 % (20.0-50.0); MEAN CORPUSCULAR HEMOGLOBIN 28.6 pg (28.0-32.0); MEAN CORPUSCULAR VOLUME 88.4 fL (81.0-99.0); MEAN PLATELET VOLUME 11.5 fl (7.4-10.4); MONOCYTES % 10.8 % (2.0-8.0); NEUTROPHILS % 61.6 % (40.0-76.0); PLATELET 245 x1000/uL (130-400); RED BLOOD CELL COUNT 4.43 mill/uL (4.2-5.4); RED CELL DISTRIBUTION WIDTH 14.8 % (11.6-14.6)
[2018-08-21 06:30] LABS: CHLORIDE 111 mEq/L (98-107)
[2018-08-21] MEDS: LEVOTHYROXINE SODIUM 25MCG TABLET PO SCH (06:44)
[2018-08-21] MEDS: BLOOD SUGAR DIAGNOSTIC STRIP TEST SCH ×8 (06:44→20:30)
[2018-08-21 07:12] LABS: DIGOXIN 0.7 ng/mL (0.9-2.0)
[2018-08-21 08:00] VITALS: BP 136/63
[2018-08-21] MEDS: GABAPENTIN 300MG CAPSULE PO SCH ×2 (09:00→20:30)
[2018-08-21] MEDS: APIXABAN 2.5 MG TABLET PO SCH ×2 (09:36→17:15)
[2018-08-21] MEDS: FUROSEMIDE 40MG TABLET PO SCH (09:36)
[2018-08-21] MEDS: CARVEDILOL 3.125 MG TABLET PO SCH ×2 (09:36→20:30)
[2018-08-21] MEDS: AMLODIPINE 10MG TABLET PO SCH (09:37)
[2018-08-21] MEDS: INSULIN LISPRO 100 UNITS/ML SUBCUT SCH ×4 (10:21→20:35)
[2018-08-21] MEDS: HYDROMORPHONE HCL/PF 2MG/ML CPJ IV PRN (10:55)
[2018-08-21 12:00] VITALS: BP 129/57
[2018-08-21 16:00] VITALS: BP 138/72
[2018-08-21] MEDS: DIGOXIN 125MCG TABLET PO SCH (18:05)
[2018-08-21 20:00] VITALS: BP 142/67
[2018-08-22] VITALS: BP 132/62
[2018-08-22 04:00] VITALS: BP 138/68
[2018-08-22] MEDS: HYDROMORPHONE HCL/PF 2MG/ML CPJ IV PRN (04:14)
[2018-08-22] MEDS: LEVOTHYROXINE SODIUM 25MCG TABLET PO SCH (06:42)
[2018-08-22] MEDS: BLOOD SUGAR DIAGNOSTIC STRIP TEST SCH ×8 (07:24→21:00)
[2018-08-22 08:00] VITALS: BP 135/65
[2018-08-22] MEDS: APIXABAN 2.5 MG TABLET PO SCH ×2 (08:41→16:04)
[2018-08-22] MEDS: INSULIN LISPRO 100 UNITS/ML SUBCUT SCH ×4 (08:59→21:00)
[2018-08-22] MEDS: GABAPENTIN 300MG CAPSULE PO SCH ×2 (08:59→21:00)
[2018-08-22] MEDS: FUROSEMIDE 40MG TABLET PO SCH (08:59)
[2018-08-22] MEDS: AMLODIPINE 10MG TABLET PO SCH (08:59)
[2018-08-22] MEDS: CARVEDILOL 3.125 MG TABLET PO SCH ×2 (09:00→21:00)
[2018-08-22 12:18] VITALS: BP 162/73
[2018-08-22] MEDS ORDERED: HALOPERIDOL LACTATE 5MG/ML VIAL IM NR (13:11)
[2018-08-22 16:00] VITALS: BP 119/76
[2018-08-22] MEDS: DIGOXIN 125MCG TABLET PO SCH ×2 (17:42→17:44)
[2018-08-22] MEDS: SODIUM CHLORIDE 0.9% 1,000 ML IV SCH (19:00)
[2018-08-22 20:00] VITALS: BP 146/81
[2018-08-23] VITALS: BP 177/92
[2018-08-23] MEDS: HYDROMORPHONE HCL/PF 2MG/ML CPJ IV PRN ×2 (00:08→04:57)
[2018-08-23 04:00] VITALS: BP 176/75
[2018-08-23] MEDS: LEVOTHYROXINE SODIUM 25MCG TABLET PO SCH (06:33)
[2018-08-23] MEDS: BLOOD SUGAR DIAGNOSTIC STRIP TEST SCH ×4 (06:33→12:13)
[2018-08-23 08:00] VITALS: BP 167/79
[2018-08-23] MEDS: FUROSEMIDE 40MG TABLET PO SCH (09:20)
[2018-08-23] MEDS: GABAPENTIN 300MG CAPSULE PO SCH (09:21)
[2018-08-23] MEDS: AMLODIPINE 10MG TABLET PO SCH (09:21)
[2018-08-23] MEDS: APIXABAN 2.5 MG TABLET PO SCH (09:21)
[2018-08-23] MEDS: CARVEDILOL 3.125 MG TABLET PO SCH (09:21)
[2018-08-23] MEDS: INSULIN LISPRO 100 UNITS/ML SUBCUT SCH ×2 (09:27→12:13)
[2018-08-23 11:49] VITALS: BP 158/79
[2018-08-23 12:00] VITALS: BP 158/79
== END 2018-08-23 13:30 | DRG 299 ==
LOC: ER 20:40 → 6EST 08-19 05:16 → EDBEDREQTM 08-19 05:20 → EDBEDREQ 08-19 05:20 → ENRESERV 08-19 07:24 → SUPCPDRO 08-19 09:52 → 6EST 08-22 14:56
PROVIDERS: ADMIT Hospitalist; ATTEND Hospitalist
DX: I82.401 Acute embolism and thrombosis of unspecified deep veins of right lower extremity (principal); N17.0 Acute kidney failure with tubular necrosis; D68.59 Other primary thrombophilia; M79.662 Pain in left lower leg; I48.91 Unspecified atrial fibrillation; I10 Essential (primary) hypertension; W18.39XA Other fall on same level, initial encounter; F03.90 Unspecified dementia, unspecified severity, without behavioral disturbance, psychotic disturbance, mood disturbance, and anxiety; I25.10 Atherosclerotic heart disease of native coronary artery without angina pectoris; E11.9 Type 2 diabetes mellitus without complications; F17.200 Nicotine dependence, unspecified, uncomplicated; Z88.8 Allergy status to other drugs, medicaments and biological substances; Z88.2 Allergy status to sulfonamides; Y93.89 Activity, other specified; Y92.89 Other specified places as the place of occurrence of the external cause; Y99.8 Other external cause status; Z95.1 Presence of aortocoronary bypass graft; Z95.0 Presence of cardiac pacemaker
CPT/HCPCS: 36415; 71045; 73502; 73560; 73590; 73610; 73620; 73700; 80162; 82962; 83735; 93005; 93970; 97162; 99285; C1893; J1170; J1630; J1650; J1815